=== PATIENT | female | born 1935 | race Caucasian/White ===

== ENCOUNTER 2016-09-11 15:42 | Inpatient (IN) | payer BC, OTHER ==
[~2016-09-11] VITALS: Ht 154.9 cm; Wt 56.7 kg
[~2016-09-11 15:42] MED LIST: ARICEPT10 MG PO; ATIVAN0.5 MG PO; COLACE100 MG ORAL; EVISTA60 MG ORAL; EVISTA60 MG PO; LASIX40 MG ORAL; MULTIVITAMINS1 EAC2 PO; NAMENDA10 MG PO; NAPROXEN SODIU220 M2 PO; OMEGA 3 1,0001 EACH PO; POTASSIUM30 MEQ/22. PO; QUETIAPINE FUMA25 MG PO; SEROQUEL50 MG ORAL; SERTRALINE HCL50 MG PO; TUMS500 MG PO; VITAMIN B COMP1 EAC4 PO; [UNRECOGNIZED DRUG - OTHER] PO
[2016-09-11] MEDS ORDERED: NS 1000ml 1,700 ML IVLG ONE (15:45)
[2016-09-11] MEDS ORDERED: cefTRIAXone 2 GM in NS 110 ML IV SCH (15:45)
[2016-09-11] MEDS ORDERED: Vancomycin 1 GM in NS 275 ML IV ONE (15:45)
[2016-09-11 16:01] VITALS: BP 112/72
[2016-09-11] MEDS ORDERED: FISH OIL CAP1000 MG ORAL (16:14)
[2016-09-11] MEDS ORDERED: CICLOPIROX15 GM TP (16:14)
[2016-09-11] MEDS ORDERED: ACETAMINOP160 MG/51 ORAL (16:14)
[2016-09-11] MEDS ORDERED: HYDROCORTISONE30 G2 TP (16:14)
[2016-09-11] MEDS ORDERED: NEXIUM40 MG ORAL (16:14)
[2016-09-11] MEDS ORDERED: FERROUS SULFAT325 MG ORAL (16:14)
[2016-09-11] MEDS ORDERED: Vancomycin 1gm inj IVPB ONE (16:15)
[2016-09-11 16:42] LABS: MEAN CORPUSCULAR HEMOGLOBIN 34.1 PG (27.0-31.0); MEAN CORPUSCULAR HGB CONC 35.3 G/DL (32.0-36.0); MEAN CORPUSCULAR VOLUME 96 FL (80-99); MEAN PLATELET VOLUME 5.8 FL (6.5-10.1); PLATELET COUNT 279 K/UL (150-450); RED BLOOD COUNT 3.96 M/UL (4.20-5.40); RED CELL DISTRIBUTION WIDTH 12.5 % (11.6-14.8)
[2016-09-11 16:52] LABS: WHITE BLOOD COUNT 22.9 K/UL (4.8-10.8)
[2016-09-11 16:53] LABS: TROPONIN I < 0.30 ng/mL (<=0.30)
[2016-09-11 16:57] LABS: APPEARANCE,URINE SLIGHTLY CLOUDY; KETONES,URINE NEGATIVE (NEGATIVE); LEUKOCYTE ESTERASE ,URINE 2+ (NEGATIVE); NITRITE,URINE POSITIVE (NEGATIVE); PH,URINE 5 (4.5-8.0); PROTEIN,URINE 1+ (NEGATIVE); UROBILINOGEN,URINE NORMAL MG/DL (0.0-1.0)
[2016-09-11 17:00] VITALS: BP 107/53
[2016-09-11 17:04] LABS: REFLEX LACTIC ACID YES OR NO YES
[2016-09-11 17:07] LABS: AMORPHOUS SEDIMENT,UR FEW /LPF; BACTERIA,URINE MANY /HPF; SQUAMOUS EPITHELIAL CELL,UR FEW /LPF (NONE/OCC); WBC,URINE 20-30 /HPF (0 - 2)
[2016-09-11 17:15] LABS: CKMB < 1.5 ng/mL (< 3.8)
[2016-09-11 17:17] LABS: ALANINE AMINOTRANSFERASE 21 U/L (3-33); ALBUMIN/GLOBULIN RATIO 1.1 (1.0-2.7); ANION GAP 12 (5-15); ASPARTATE AMINO TRANSFERASE 28 U/L (5-40); CALCIUM 9.2 mg/dL (8.6-10.2); CARBON DIOXIDE 24 mEQ/L (20-30); CHLORIDE 105 mEQ/L (98-107); CREATININE 0.7 mg/dL (0.5-0.9); HEMOLYSIS 29; POTASSIUM 3.9 mEQ/L (3.4-4.9); SODIUM 141 mEQ/L (135-145); TOTAL PROTEIN 6.8 g/dL (6.6-8.7)
[2016-09-11 17:36] LABS: BAND NEUTROPHILS % (MANUAL) 5 % (0-8); BASOPHILS % (MANUAL) 0 % (0-2); EOSINOPHILS % (MANUAL) 0 % (0-3); LYMPHOCYTES % (MANUAL) 12 % (20-45); NEUTROPHILS % (MANUAL) 75 % (45-75); PLATELET ESTIMATE ADEQUATE; PLATELET MORPHOLOGY NORMAL; TOTAL CELLS COUNTED 100
[2016-09-11 18:00] VITALS: BP 112/78
[2016-09-11] MEDS ORDERED: Nitroglycerin Subl 0.4mg tab (Bottle Of 25) SL PRN (18:45)
[2016-09-11] MEDS ORDERED: Miralax 17gm pkt ORAL PRN (18:45)
[2016-09-11] MEDS ORDERED: Morphine Sulfate 2mg/ml Inj IVP PRN (18:45)
[2016-09-11] MEDS ORDERED: DuoNeb 0.5-3(2.5)mg/3ml neb HHN PRN (18:45)
[2016-09-11 19:00] VITALS: BP 115/75
[2016-09-11 20:00] VITALS: BP 121/78
--- NOTE | 2016-09-11 20:33 | Emergency Room Report ---
History of Present Illness General Chief Complaint: Dyspnea/Respdistress Source: Family Member, Medical Record, EMS Present Illness HPI This patient presents from a nursing home facility. She has a history of severe dementia. She presents for concern of worsening mental status and low blood pressure. She is DO NOT RESUSCITATE. She was given 300 mL of normal saline prior to arrival by EMS and has had improvement in her blood pressure. There was also concern about her O2 saturation, however, on arrival this is within normal limits. There is no other history or complaints. Allergies: Coded Allergies: SULFA (SULFONAMIDE ANTIBIOTICS) (Verified Allergy, Unknown, 08/21/12) Patient History Past Medical History: see triage record, dementia, psych hx, renal disease Past Surgical History: jose, hysterectomy Social History: Denies: alcohol use, drug use, smoking Reviewed Nursing Documentation: PMH: Agreed, PSxH: Agreed Nursing Documentation-PMH Past Medical History: No History, Except For Hx Cardiac Problems: No Hx Cancer: No Hx Gastrointestinal Problems: No History Of Psychiatric Problem: Yes - ALZHEIMER, DEMENTIA, Hx Alzheimer's Disease: Yes Review of Systems All Other Systems: negative except mentioned in HPI Physical Exam Vital Signs Date Time Temp Pulse Resp B/P Pulse Ox O2 Delivery O2 Flow Rate FiO2 09/11/16 15:30 70 20 98/66 82 Non-Rebreather 15.0 09/11/16 16:01 99.4 Sp02 EP Interpretation: reviewed, normal General Appearance: no apparent distress, GCS 15, non-toxic, other - Frail, elderly female. Non-verbal at baseline. Head: normocephalic, atraumatic Eyes: bilateral eye PERRL, bilateral eye normal inspection ENT: hearing grossly normal, normal pharynx, no angioedema Neck: full range of motion, supple/symm/no masses Respiratory: chest non-tender, lungs clear, normal breath sounds, no respiratory distress, no retraction, no accessory muscle use Cardiovascular #1: regular rate, rhythm, no edema Gastrointestinal: normal bowel sounds, non tender, soft, non-distended, no guarding, no rebound Rectal: deferred Musculoskeletal: normal inspection Neurologic: alert, other - Pt not cooperative with exam. Unable to fully assess. non-focal. Skin: normal color, no rash, warm/dry, well hydrated Medical Decision Making Diagnostic Impression: Primary Impression: Sepsis Additional Impression: Pyelonephritis ER Course This patient presents with pyelonephritis and sepsis. She also has an opacity on her chest x-ray and no right mid and lower lobe. There was report of an episode of emesis in route by EMS. Possibly this patient aspirated. At the sinus patient has severe dementia. She is DO NOT RESUSCITATE/DO NOT INTUBATE. She did maintain a normal oxygen saturation and after some suctioning. This was given broad-spectrum antibiotics IV fluids. She will be admitted for further IV antibiotics, evaluation and treatment. This patient is critically ill. This patient required complex medical decision- making, aggressive intervention, extensive laboratory workup and monitoring. Critical care time: 40 minutes. Labs Test 09/11/16 15:50 09/11/16 16:00 09/11/16 19:30 White Blood Count 22.9 K/UL (4.8-10.8) Red Blood Count 3.96 M/UL (4.20-5.40) Hemoglobin 13.5 G/DL (12.0-16.0) Hematocrit 38.1 % (37.0-47.0) Mean Corpuscular Volume 96 FL (80-99) Mean Corpuscular Hemoglobin 34.1 PG (27.0-31.0) Mean Corpuscular Hemoglobin Concent 35.3 G/DL (32.0-36.0) Red Cell Distribution Width 12.5 % (11.6-14.8) Platelet Count 279 K/UL (150-450) Mean Platelet Volume 5.8 FL (6.5-10.1) Neutrophils (%) (Auto) % (45.0-75.0) Lymphocytes (%) (Auto) % (20.0-45.0) Monocytes (%) (Auto) % (1.0-10.0) Eosinophils (%) (Auto) % (0.0-3.0) Basophils (%) (Auto) % (0.0-2.0) Differential Total Cells Counted 100 Neutrophils % (Manual) 75 % (45-75) Lymphocytes % (Manual) 12 % (20-45) Monocytes % (Manual) 8 % (1-10) Eosinophils % (Manual) 0 % (0-3) Basophils % (Manual) 0 % (0-2) Band Neutrophils 5 % (0-8) Platelet Estimate Adequate Platelet Morphology Normal Red Blood Cell Morphology Normal Sodium Level 141 mEQ/L (135-145) Potassium Level 3.9 mEQ/L (3.4-4.9) Chloride Level 105 mEQ/L (98-107) Carbon Dioxide Level 24 mEQ/L (20-30) Anion Gap 12 (5-15) Blood Urea Nitrogen 31 mg/dL (7-23) Creatinine 0.7 mg/dL (0.5-0.9) Estimat Glomerular Filtration Rate mL/min (>60) Glucose Level 179 mg/dL (74-106) Lactic Acid Level 2.20 mmol/L (0.66-2.22) 2.50 mmol/L (0.66-2.22) Calcium Level 9.2 mg/dL (8.6-10.2) Total Bilirubin 0.2 mg/dL (0.0-1.2) Aspartate Amino Transf (AST/SGOT) 28 U/L (5-40) Alanine Aminotransferase (ALT/SGPT) 21 U/L (3-33) Alkaline Phosphatase 87 U/L (35-104) Total Creatine Kinase 29 U/L (26-140) Creatine Kinase MB < 1.5 ng/mL (< 3.8) Creatine Kinase MB Relative Index Troponin I < 0.30 ng/mL (<=0.30) Total Protein 6.8 g/dL (6.6-8.7) Albumin 3.6 g/dL (3.5-5.2) Globulin 3.2 g/dL Albumin/Globulin Ratio 1.1 (1.0-2.7) Urine Color Yellow Urine Appearance Slightly cloudy Urine pH 5 (4.5-8.0) Urine Specific [place] 1.020 (1.005-1.035) Urine Protein 1+ (NEGATIVE) Urine Glucose (UA) Negative (NEGATIVE) Urine Ketones Negative (NEGATIVE) Urine Occult Blood 3+ (NEGATIVE) Urine Nitrite Positive (NEGATIVE) Urine Bilirubin Negative (NEGATIVE) Urine Urobilinogen Normal MG/DL (0.0-1.0) Urine Leukocyte Esterase 2+ (NEGATIVE) Urine RBC 5-10 /HPF (0 - 2) Urine WBC 20-30 /HPF (0 - 2) Urine Squamous Epithelial Cells Few /LPF (NONE/OCC) Urine Amorphous Sediment Few /LPF (NONE) Urine Bacteria Many /HPF (NONE) EKG Diagnostic Results Rate: normal Rhythm: NSR ST Segments: no acute changes Rhythm Strip Diag. Results EP Interpretation: yes Rate: 70's Rhythm: NSR, no PVC's, no ectopy Chest X-Ray Diagnostic Results Chest X-Ray Diagnostic Results : Chest X-Ray Ordered: Yes # of Views/Limited/Complete: 1 View Indication: Other EP Interpretation: No Interpretation: no pneumothorax, other Impression: Other - RML and RLL opacity, cardiomegaly Interpreting ER Provider: Iveth Last Vital Signs Date Time Temp Pulse Resp B/P Pulse Ox O2 Delivery O2 Flow Rate FiO2 09/11/16 20:00 99.4 75 18 121/78 98 Non-Rebreather 15.0 Status: improved Disposition: ADMITTED INPATIENT Condition: Critical Referrals: NON PHYSICIAN (PCP) LAURIE CARDONA D.O. Sep 11, 2016 20:33
--- NOTE | 2016-09-11 21:06 | History and Physical ---
History of Present Illness General Date patient seen: Sep 12, 2016 Reason for Hospitalization: Dyspnea/Respdistress Present Illness HPI 80 year old female with hx of advanced dementia, bed bound presents from a [facility] facility [facility] of worsening mental status and low blood pressure. She is DO NOT RESUSCITATE. She was given 300 mL of normal saline prior to arrival by EMS and has had improvement in her blood pressure. Initial evaluation showed that she has R pneumonia and sepsis. She is admitted for further work up. Allergies: Coded Allergies: SULFA (SULFONAMIDE ANTIBIOTICS) (Verified Allergy, Unknown, 08/21/12) Medication History Scheduled B Complex With Vitamin C (Vitamin B Complex-C), 1 TAB PO DAILY, (Reported) Calcium Carbonate (Calcium), 600 MG PO DAILY, (Reported) Docusate Sodium* (Colace*), 100 MG ORAL TWICE A DAY, (Reported) Esomeprazole Magnesium (Nexium), 40 MG ORAL DAILY, (Reported) Ferrous Sulfate* (Ferrous Sulfate*), 650 MG ORAL DAILY, (Reported) Fish Oil (Fish Oil 1,000 mg Capsule), 1,400 MG ORAL DAILY, (Reported) Furosemide* (Lasix*), 40 MG ORAL DAILY, (Reported) Hydrocortisone (Hydrocortisone Cream 2.5%), 1 APPLIC TP BID, (Reported) Lorazepam* (Ativan*), 0.5 MG PO PRN BID, (Reported) Multivitamins* (Multivitamins*), 1 EACH PO DAILY, (Reported) Naproxen Sodium (Naproxen Sodium), 220 MG PO PRN, (Reported) Cedar-3 Fatty Acids/Fish Oil (Cedar 3 1,000 Mg Softgel), 1 EACH PO DAILY, ( Reported) Potassium Chloride (Potassium Chloride), 20 MEQ PO DAILY, (Reported) Quetiapine Fumarate (Seroquel), 100 MG ORAL DAILY, (Reported) Quetiapine Fumarate* (Seroquel*), 50 MG PO DAILY, (Reported) Raloxifene Hcl* (Evista*), 60 MG ORAL DAILY, (Reported) Sertraline Hcl* (Zoloft*), 25 MG PO DAILY, (Reported) Scheduled PRN Acetaminophen* (Acetaminophen*), 650 MG ORAL Q6H PRN for Mild Pain/Temp > 100.5, (Reported) Miscellaneous Medications Ciclopirox Olamine* (Loprox*), 15 GM TP, (Reported) Patient History Healthcare decision maker Resuscitation status Advanced Directive on File Yes Past Medical/Surgical History Past Medical/Surgical History: (1) Alzheimer's dementia Review of Systems All Other Systems: negative except mentioned in HPI Physical Exam General Appearance: WD/WN Lines, tubes and drains: peripheral HEENT: normocephalic, atraumatic Neck: non-tender, supple Respiratory/Chest: chest wall non-tender, lungs clear Breasts: no masses Cardiovascular/Chest: normal peripheral pulses, normal rate Abdomen: normal bowel sounds, non tender Genitourinary/Rectal: normal genital exam, normal rectal exam Extremities: normal range of motion Skin Exam: normal pigmentation Neurologic: gopherman II-XII grossly normal Lymphatic: anterior cervical Last 24 Hour Vital Signs Date Time Temp Pulse Resp B/P Pulse Ox O2 Delivery O2 Flow Rate FiO2 09/11/16 20:18 99.4 75 18 121/78 98 Non-Rebreather 15.0 09/11/16 20:00 99.4 75 18 121/78 98 Non-Rebreather 15.0 09/11/16 19:00 76 20 115/75 100 Non-Rebreather 15.0 09/11/16 18:00 79 22 112/78 100 Non-Rebreather 15.0 09/11/16 17:00 77 29 107/53 100 Non-Rebreather 15.0 09/11/16 16:01 70 20 Non-Rebreather 15.0 09/11/16 16:01 99.4 70 20 112/72 82 Non-Rebreather 15.0 09/11/16 15:30 70 20 98/66 82 Non-Rebreather 15.0 Laboratory Tests Test 09/11/16 15:50 09/11/16 16:00 09/11/16 19:30 White Blood Count 22.9 K/UL (4.8-10.8) *H Red Blood Count 3.96 M/UL (4.20-5.40) L Hemoglobin 13.5 G/DL (12.0-16.0) Hematocrit 38.1 % (37.0-47.0) Mean Corpuscular Volume 96 FL (80-99) Mean Corpuscular Hemoglobin 34.1 PG (27.0-31.0) H Mean Corpuscular Hemoglobin Concent 35.3 G/DL (32.0-36.0) Red Cell Distribution Width 12.5 % (11.6-14.8) Platelet Count 279 K/UL (150-450) Mean Platelet Volume 5.8 FL (6.5-10.1) L Neutrophils (%) (Auto) % (45.0-75.0) Lymphocytes (%) (Auto) % (20.0-45.0) Monocytes (%) (Auto) % (1.0-10.0) Eosinophils (%) (Auto) % (0.0-3.0) Basophils (%) (Auto) % (0.0-2.0) Differential Total Cells Counted 100 Neutrophils % (Manual) 75 % (45-75) Lymphocytes % (Manual) 12 % (20-45) L Monocytes % (Manual) 8 % (1-10) Eosinophils % (Manual) 0 % (0-3) Basophils % (Manual) 0 % (0-2) Band Neutrophils 5 % (0-8) Platelet Estimate Adequate Platelet Morphology Normal Red Blood Cell Morphology Normal Sodium Level 141 mEQ/L (135-145) Potassium Level 3.9 mEQ/L (3.4-4.9) Chloride Level 105 mEQ/L (98-107) Carbon Dioxide Level 24 mEQ/L (20-30) Anion Gap 12 (5-15) Blood Urea Nitrogen 31 mg/dL (7-23) H Creatinine 0.7 mg/dL (0.5-0.9) Estimat Glomerular Filtration Rate mL/min (>60) Glucose Level 179 mg/dL (74-106) H Lactic Acid Level 2.20 mmol/L (0.66-2.22) 2.50 mmol/L (0.66-2.22) H Calcium Level 9.2 mg/dL (8.6-10.2) Total Bilirubin 0.2 mg/dL (0.0-1.2) Aspartate Amino Transf (AST/SGOT) 28 U/L (5-40) Alanine Aminotransferase (ALT/SGPT) 21 U/L (3-33) Alkaline Phosphatase 87 U/L (35-104) Total Creatine Kinase 29 U/L (26-140) Creatine Kinase MB < 1.5 ng/mL (< 3.8) Creatine Kinase MB Relative Index Troponin I < 0.30 ng/mL (<=0.30) Total Protein 6.8 g/dL (6.6-8.7) Albumin 3.6 g/dL (3.5-5.2) Globulin 3.2 g/dL Albumin/Globulin Ratio 1.1 (1.0-2.7) Urine Color Yellow Urine Appearance Slightly cloudy Urine pH 5 (4.5-8.0) Urine Specific [place] 1.020 (1.005-1.035) Urine Protein 1+ (NEGATIVE) H Urine Glucose (UA) Negative (NEGATIVE) Urine Ketones Negative (NEGATIVE) Urine Occult Blood 3+ (NEGATIVE) H Urine Nitrite Positive (NEGATIVE) H Urine Bilirubin Negative (NEGATIVE) Urine Urobilinogen Normal MG/DL (0.0-1.0) Urine Leukocyte Esterase 2+ (NEGATIVE) H Urine RBC 5-10 /HPF (0 - 2) H Urine WBC 20-30 /HPF (0 - 2) H Urine Squamous Epithelial Cells Few /LPF (NONE/OCC) Urine Amorphous Sediment Few /LPF (NONE) H Urine Bacteria Many /HPF (NONE) H Height (Feet): 5 Weight (Pounds): 125 Medications Current Medications Medications (Trade) Dose Ordered Sig/Medardo Route PRN Reason Start Time Stop Time Status Last Admin Dose Admin Acetaminophen (Tylenol) 650 mg Q4H PRN ORAL fever 09/11/16 18:45 10/11/16 18:44 Albuterol/ Ipratropium 3 ml 3 ml Q4H PRN HHN Shortness of Breath 09/11/16 18:45 09/16/16 18:44 Cefepime HCl 2 gm/ Dextrose 110 ml @ 220 mls/hr QHS IV 09/11/16 22:00 09/18/16 21:59 Heparin Sodium (Porcine) (Heparin 5000 units/ml) 5,000 units EVERY 12 HOURS SUBQ 09/11/16 21:00 10/11/16 20:59 Morphine Sulfate (Morphine Sulfate) 2 mg Q4H PRN IVP Moderate Pain (Pain Scale 4-6) 09/11/16 18:45 09/18/16 18:44 Nitroglycerin 0.4 mg 0.4 mg Q5MIN PRN SL Prn Chest Pain 09/11/16 18:45 10/11/16 18:44 Ondansetron HCl (Zofran) 4 mg Q6H PRN IVP Nausea & Vomiting 09/11/16 18:45 10/11/16 18:44 Polyethylene Glycol (Miralax) 17 gm DAILYPRN PRN ORAL Constipation 09/11/16 18:45 10/11/16 18:44 Potassium Chloride/Dextrose/ Sodium Chloride (KCl/D5ns) 1,010 ml @ 50 mls/hr [id number] IV 09/11/16 22:00 10/11/16 21:59 Quetiapine Fumarate (SEROquel) 50 mg DAILY ORAL 09/12/16 09:00 10/12/16 08:59 Sertraline HCl (Zoloft) 25 mg DAILY ORAL 09/12/16 09:00 10/12/16 08:59 Temazepam (Restoril) 15 mg HSPRN PRN ORAL Insomnia 09/11/16 18:45 09/18/16 18:44 Vancomycin HCl/ Dextrose (Vancomycin/D5W) 275 ml @ 183.3 mls/ hr Q24H IV 09/12/16 00:30 09/17/16 00:29 UNV Assessment/Plan Problem List: (1) Aspiration pneumonia ICD Codes: J69.0 - Pneumonitis due to inhalation of food and vomit SNOMED: 766211509 (2) Acute encephalopathy ICD Codes: G93.40 - Encephalopathy, unspecified SNOMED: 7428011 (3) Sepsis ICD Codes: A41.9 - Sepsis, unspecified organism SNOMED: 79183506 (4) Pyelonephritis ICD Codes: N12 - Tubulo-interstitial nephritis, not specified as acute or chronic SNOMED: 96533886 (5) Alzheimer's dementia ICD Codes: G30.9 - Alzheimer's disease, unspecified SNOMED: 64924981 Assessment/Plan iv abx respiratory treatment swallow study titrate fio2 to sat of 92% check cultures dvt prophylaxis family meeting about plan of care YESY MARSH Sep 11, 2016 21:06
[2016-09-11 22:00] VITALS: BP_SYST 122; BP_SYST 136; BP_DIAS 69; BP_DIAS 77
[2016-09-11] MEDS: Cefepime HCl 2 GM in D5W 110 ML IV SCH (22:54)
[2016-09-11] MEDS: Heparin 5000 units/ml inj SUBQ SCH (22:56)
[2016-09-12] VITALS (8 sets, daily range): BP systolic 97–144; BP diastolic 49–95
[2016-09-12 06:30] LABS: MEAN CORPUSCULAR HEMOGLOBIN 32.3 PG (27.0-31.0); MEAN CORPUSCULAR VOLUME 98 FL (80-99); MEAN PLATELET VOLUME 5.8 FL (6.5-10.1); PLATELET COUNT 246 K/UL (150-450); RED BLOOD COUNT 4.16 M/UL (4.20-5.40); RED CELL DISTRIBUTION WIDTH 12.5 % (11.6-14.8)
[2016-09-12 07:31] LABS: ALANINE AMINOTRANSFERASE 19 U/L (3-33); ALBUMIN/GLOBULIN RATIO 0.9 (1.0-2.7); ANION GAP 12 (5-15); ASPARTATE AMINO TRANSFERASE 32 U/L (5-40); CALCIUM 9.1 mg/dL (8.6-10.2); CARBON DIOXIDE 23 mEQ/L (20-30); CHLORIDE 110 mEQ/L (98-107); CREATININE 0.7 mg/dL (0.5-0.9); HEMOLYSIS 3; POTASSIUM 4.4 mEQ/L (3.4-4.9); SODIUM 145 mEQ/L (135-145); TOTAL PROTEIN 6.6 g/dL (6.6-8.7)
[2016-09-12 10:08] LABS: BAND NEUTROPHILS % (MANUAL) 18 % (0-8); BASOPHILS % (MANUAL) 0 % (0-2); EOSINOPHILS % (MANUAL) 0 % (0-3); LYMPHOCYTES % (MANUAL) 7 % (20-45); NEUTROPHILS % (MANUAL) 74 % (45-75); PLATELET ESTIMATE ADEQUATE; PLATELET MORPHOLOGY NORMAL; TOTAL CELLS COUNTED 100
--- NOTE | 2016-09-12 10:13 | Diagnostic Imaging Report ---
Indication: SOB Technique: One view of the chest Comparison: 02/29/2012 Findings: Interim development of diffuse hazy opacity throughout the right mid and lower lung. There is equivocal mild interstitial prominence. The heart is enlarged. Pleural spaces are clear. 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 Cholecystectomy clips are noted Impression: Hazy infiltrate in the right mid and lower lung. Possible mild generalized interstitial disease.
[2016-09-12] MEDS: Sertraline 50mg tab ORAL SCH (10:24)
[2016-09-12] MEDS: Heparin 5000 units/ml inj SUBQ SCH ×2 (10:40→20:09)
--- NOTE | 2016-09-12 12:01 | Infectious Diseases Prog Note ---
Assessment/Plan Assessment/Plan ID consult dictated # [id number] Subjective Allergies: Coded Allergies: SULFA (SULFONAMIDE ANTIBIOTICS) (Verified Allergy, Unknown, 08/21/12) Objective Vital Signs Last 24 Hour Vital Signs Date Time Temp Pulse Resp B/P Pulse Ox O2 Delivery O2 Flow Rate FiO2 09/12/16 08:31 100 Non-Rebreather 15.0 100 09/12/16 08:31 Non-Rebreather 15.0 100 09/12/16 08:28 98 22 Non-Rebreather 15.0 100 09/12/16 08:00 98.2 95 20 116/66 100 Room Air 09/12/16 08:00 98.2 95 20 116/66 100 Simple Mask 15.0 09/12/16 04:00 97.9 96 22 105/61 100 Non-Rebreather 09/12/16 00:00 97.7 72 18 122/72 97 Non-Rebreather 09/12/16 00:00 96.4 92 22 144/75 100 Non-Rebreather 09/11/16 22:00 97.9 71 20 122/69 98 Non-Rebreather 09/11/16 22:00 95.7 85 20 136/77 95 Non-Rebreather 09/11/16 20:18 99.4 75 18 121/78 98 Non-Rebreather 15.0 09/11/16 20:00 99.4 75 18 121/78 98 Non-Rebreather 15.0 09/11/16 19:00 76 20 115/75 100 Non-Rebreather 15.0 09/11/16 18:00 79 22 112/78 100 Non-Rebreather 15.0 09/11/16 17:00 77 29 107/53 100 Non-Rebreather 15.0 09/11/16 16:01 70 20 Non-Rebreather 15.0 09/11/16 16:01 99.4 70 20 112/72 82 Non-Rebreather 15.0 09/11/16 15:30 70 20 98/66 82 Non-Rebreather 15.0 Height (Feet): 5 Height (Inches): 1.00 Weight (Pounds): 125 Microbiology Date/Time Source Procedure Growth Status 09/11/16 15:30 Blood Blood Culture - Preliminary Resulted 09/11/16 16:00 Urine,Clean Catch Urine Culture - Preliminary Gram Negative Bacillus 1 Resulted Laboratory Tests Test 09/11/16 15:50 09/11/16 16:00 09/11/16 19:30 09/12/16 04:40 White Blood Count 22.9 K/UL (4.8-10.8) *H 11.0 K/UL (4.8-10.8) #H Red Blood Count 3.96 M/UL (4.20-5.40) L 4.16 M/UL (4.20-5.40) L Hemoglobin 13.5 G/DL (12.0-16.0) 13.5 G/DL (12.0-16.0) Hematocrit 38.1 % (37.0-47.0) 40.8 % (37.0-47.0) Mean Corpuscular Volume 96 FL (80-99) 98 FL (80-99) Mean Corpuscular Hemoglobin 34.1 PG (27.0-31.0) H 32.3 PG (27.0-31.0) H Mean Corpuscular Hemoglobin Concent 35.3 G/DL (32.0-36.0) 33.0 G/DL (32.0-36.0) Red Cell Distribution Width 12.5 % (11.6-14.8) 12.5 % (11.6-14.8) Platelet Count 279 K/UL (150-450) 246 K/UL (150-450) Mean Platelet Volume 5.8 FL (6.5-10.1) L 5.8 FL (6.5-10.1) L Neutrophils (%) (Auto) % (45.0-75.0) % (45.0-75.0) Lymphocytes (%) (Auto) % (20.0-45.0) % (20.0-45.0) Monocytes (%) (Auto) % (1.0-10.0) % (1.0-10.0) Eosinophils (%) (Auto) % (0.0-3.0) % (0.0-3.0) Basophils (%) (Auto) % (0.0-2.0) % (0.0-2.0) Differential Total Cells Counted 100 100 Neutrophils % (Manual) 75 % (45-75) 74 % (45-75) Lymphocytes % (Manual) 12 % (20-45) L 7 % (20-45) L Monocytes % (Manual) 8 % (1-10) 1 % (1-10) Eosinophils % (Manual) 0 % (0-3) 0 % (0-3) Basophils % (Manual) 0 % (0-2) 0 % (0-2) Band Neutrophils 5 % (0-8) 18 % (0-8) H Platelet Estimate Adequate Adequate Platelet Morphology Normal Normal Red Blood Cell Morphology Normal Normal Sodium Level 141 mEQ/L (135-145) 145 mEQ/L (135-145) Potassium Level 3.9 mEQ/L (3.4-4.9) 4.4 mEQ/L (3.4-4.9) Chloride Level 105 mEQ/L (98-107) 110 mEQ/L (98-107) H Carbon Dioxide Level 24 mEQ/L (20-30) 23 mEQ/L (20-30) Anion Gap 12 (5-15) 12 (5-15) Blood Urea Nitrogen 31 mg/dL (7-23) H 27 mg/dL (7-23) H Creatinine 0.7 mg/dL (0.5-0.9) 0.7 mg/dL (0.5-0.9) Estimat Glomerular Filtration Rate mL/min (>60) mL/min (>60) Glucose Level 179 mg/dL (74-106) H 153 mg/dL (74-106) H Lactic Acid Level 2.20 mmol/L (0.66-2.22) 2.50 mmol/L (0.66-2.22) H Calcium Level 9.2 mg/dL (8.6-10.2) 9.1 mg/dL (8.6-10.2) Total Bilirubin 0.2 mg/dL (0.0-1.2) 0.4 mg/dL (0.0-1.2) Aspartate Amino Transf (AST/SGOT) 28 U/L (5-40) 32 U/L (5-40) Alanine Aminotransferase (ALT/SGPT) 21 U/L (3-33) 19 U/L (3-33) Alkaline Phosphatase 87 U/L (35-104) 77 U/L (35-104) Total Creatine Kinase 29 U/L (26-140) Creatine Kinase MB < 1.5 ng/mL (< 3.8) Creatine Kinase MB Relative Index Troponin I < 0.30 ng/mL (<=0.30) Total Protein 6.8 g/dL (6.6-8.7) 6.6 g/dL (6.6-8.7) Albumin 3.6 g/dL (3.5-5.2) 3.2 g/dL (3.5-5.2) L Globulin 3.2 g/dL 3.4 g/dL Albumin/Globulin Ratio 1.1 (1.0-2.7) 0.9 (1.0-2.7) L Urine Color Yellow Urine Appearance Slightly cloudy Urine pH 5 (4.5-8.0) Urine Specific [place] 1.020 (1.005-1.035) Urine Protein 1+ (NEGATIVE) H Urine Glucose (UA) Negative (NEGATIVE) Urine Ketones Negative (NEGATIVE) Urine Occult Blood 3+ (NEGATIVE) H Urine Nitrite Positive (NEGATIVE) H Urine Bilirubin Negative (NEGATIVE) Urine Urobilinogen Normal MG/DL (0.0-1.0) Urine Leukocyte Esterase 2+ (NEGATIVE) H Urine RBC 5-10 /HPF (0 - 2) H Urine WBC 20-30 /HPF (0 - 2) H Urine Squamous Epithelial Cells Few /LPF (NONE/OCC) Urine Amorphous Sediment Few /LPF (NONE) H Urine Bacteria Many /HPF (NONE) H Current Medications Medications (Trade) Dose Ordered Sig/Medardo Route PRN Reason Start Time Stop Time Status Last Admin Dose Admin Acetaminophen (Tylenol) 650 mg Q4H PRN ORAL fever 09/11/16 18:45 10/11/16 18:44 Albuterol/ Ipratropium 3 ml 3 ml Q4H PRN HHN Shortness of Breath 09/11/16 18:45 09/16/16 18:44 Cefepime HCl 2 gm/ Dextrose 110 ml @ 220 mls/hr QHS IV 09/11/16 22:00 09/18/16 21:59 09/11/16 22:54 Heparin Sodium (Porcine) (Heparin 5000 units/ml) 5,000 units EVERY 12 HOURS SUBQ 09/11/16 21:00 10/11/16 20:59 09/12/16 10:40 Morphine Sulfate (Morphine Sulfate) 2 mg Q4H PRN IVP Moderate Pain (Pain Scale 4-6) 09/11/16 18:45 09/18/16 18:44 Nitroglycerin 0.4 mg 0.4 mg Q5MIN PRN SL Prn Chest Pain 09/11/16 18:45 10/11/16 18:44 Ondansetron HCl (Zofran) 4 mg Q6H PRN IVP Nausea & Vomiting 09/11/16 18:45 10/11/16 18:44 Polyethylene Glycol (Miralax) 17 gm DAILYPRN PRN ORAL Constipation 09/11/16 18:45 10/11/16 18:44 Potassium Chloride/Dextrose/ Sodium Chloride (KCl/D5ns) 1,010 ml @ 50 mls/hr [id number] IV 09/11/16 22:00 10/11/16 21:59 09/11/16 22:55 Quetiapine Fumarate (SEROquel) 50 mg DAILY ORAL 09/12/16 09:00 10/12/16 08:59 Sertraline HCl (Zoloft) 25 mg DAILY ORAL 09/12/16 09:00 10/12/16 08:59 Temazepam (Restoril) 15 mg HSPRN PRN ORAL Insomnia 09/11/16 18:45 09/18/16 18:44 Vancomycin HCl/ Dextrose (Vancomycin/D5W) 275 ml @ 183.3 mls/ hr Q24H IVPB 09/12/16 16:30 09/17/16 16:29 VALORIE CLEVELAND Sep 12, 2016 12:01
--- NOTE | 2016-09-12 13:46 | Consultation ---
DATE OF CONSULTATION: 09/12/2016 INFECTIOUS DISEASE CONSULTATION This consult is for coverage of Dr. Lyons. CONSULTING PHYSICIAN: Roni Beltran M.D. PRIMARY ATTENDING: Mike Servin M.D. REASON FOR CONSULT: Sepsis and UTI. HISTORY OF PRESENT ILLNESS: This is a 80-year-old white female, admitted yesterday from assisted facility, because of altered mental status at baseline. The patient have dementia, but was less responsive. She was hypertensive. She was found to have leukocytosis and lactic acidosis. PAST MEDICAL HISTORY: Significant for Alzheimer dementia, diverticulosis, status post cholecystectomy, and status post hysterectomy. MEDICATIONS: Vancomycin, Seroquel, Zoloft, cefepime, DuoNeb inhaler, Tylenol, morphine, Zofran, and nitroglycerin. ALLERGIES: Allergic to sulfa. SOCIAL HISTORY: shelter resident. Code status is DNR. No history of alcohol, drug abuse, or smoking. PHYSICAL EXAMINATION: GENERAL APPEARANCE: In no acute distress. VITAL SIGNS: Temperature 98.2 degrees, pulse 95, and blood pressure 116/66. HEAD AND NECK: Getting O2 by nasal cannula. She had central facial rash. HEART: Regular. LUNGS: Clear. ABDOMEN: Soft, nontender, and obese. EXTREMITIES: No edema. NEUROLOGIC: Awake. Seems confused. Nonverbal. LABORATORY DATA: WBC today is 11,000 coming from 22.9, hemoglobin 18.5, hematocrit 40.8, and platelets are 246,000. Sodium 145, potassium 4.4, chloride 110, bicarbonate 22, BUN 27, creatinine 0.7, and glucose 153. Lactic acid is 2.5. Chest x-ray showed hazy infiltrate in the lower lung. UA showed WBC of 20-30, RBC 5-10, and nitrite positive. Urine culture growing gram negative rods. Blood culture growing gram negative rods. IMPRESSION: Sepsis with leukocytosis and lactic acidosis. Source seems to be urinary tract infection. The patient has pyuria. The patient have bacteremia with gram positive rods. May have early pneumonia in the right side. She has advanced dementia with psychosis. RECOMMENDATION: We will continue with current antibiotic, vancomycin, and cefepime. We will follow up with cultures. At the end of my exam, I thank, Gareth, for involving me in the care of this patient. Roni Beltran M.D. DR: KAYY JOB#: [id number] CC:
--- NOTE | 2016-09-12 15:45 | Pulmonology Progress Note ---
Assessment/Plan Problems: (1) Aspiration pneumonia (2) Acute encephalopathy (3) Sepsis (4) Pyelonephritis (5) Alzheimer's dementia Assessment/Plan wbc decreasing iv abx respiratory treatment swallow study titrate fio2 to sat of 92% check cultures dvt prophylaxis talked to pt's son, he wouldn't want any artificial feeding in case she fails swallow study Subjective ROS Limited/Unobtainable: Yes Constitutional: Reports: no symptoms HEENT: Repors: no symptoms Respiratory: Reports: no symptoms, other Allergies: Coded Allergies: SULFA (SULFONAMIDE ANTIBIOTICS) (Verified Allergy, Unknown, 08/21/12) Objective Last 24 Hour Vital Signs Date Time Temp Pulse Resp B/P Pulse Ox O2 Delivery O2 Flow Rate FiO2 09/12/16 12:00 98.4 20 120/60 97 Nasal Cannula 3.0 09/12/16 08:31 100 Non-Rebreather 15.0 100 09/12/16 08:31 Non-Rebreather 15.0 100 09/12/16 08:28 98 22 Non-Rebreather 15.0 100 09/12/16 08:00 98.2 95 20 116/66 100 Room Air 09/12/16 08:00 98.2 95 20 116/66 100 Simple Mask 15.0 09/12/16 04:00 97.9 96 22 105/61 100 Non-Rebreather 09/12/16 00:00 97.7 72 18 122/72 97 Non-Rebreather 09/12/16 00:00 96.4 92 22 144/75 100 Non-Rebreather 09/11/16 22:00 97.9 71 20 122/69 98 Non-Rebreather 09/11/16 22:00 95.7 85 20 136/77 95 Non-Rebreather 09/11/16 20:18 99.4 75 18 121/78 98 Non-Rebreather 15.0 09/11/16 20:00 99.4 75 18 121/78 98 Non-Rebreather 15.0 09/11/16 19:00 76 20 115/75 100 Non-Rebreather 15.0 09/11/16 18:00 79 22 112/78 100 Non-Rebreather 15.0 09/11/16 17:00 77 29 107/53 100 Non-Rebreather 15.0 09/11/16 16:01 70 20 Non-Rebreather 15.0 09/11/16 16:01 99.4 70 20 112/72 82 Non-Rebreather 15.0 Intake and Output 09/11/16 09/12/16 18:59 06:59 Intake Total 2085 ml 410 ml Output Total 50 ml 1200 ml Balance 2035 ml -790 ml Intake IV Total 2085 ml 410 ml Output Urine Total 50 ml 1200 ml General Appearance: WD/WN HEENT: normocephalic, atraumatic, anicteric Respiratory/Chest: chest wall non-tender, lungs clear Breasts: no masses Cardiovascular: normal peripheral pulses Abdomen: normal bowel sounds, soft, non tender Genitourinary: normal external genitalia Extremities: no cyanosis, no clubbing Skin: no rash 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 Lymphatic: no neck adenopathy Microbiology Date/Time Source Procedure Growth Status 09/11/16 15:30 Blood Blood Culture - Preliminary Resulted 09/11/16 16:00 Urine,Clean Catch Urine Culture - Preliminary Gram Negative Bacillus 1 Resulted Laboratory Tests 09/11/16 15:50: White Blood Count 22.9*H, Red Blood Count 3.96L, Hemoglobin 13.5, Hematocrit 38.1, Mean Corpuscular Volume 96, Mean Corpuscular Hemoglobin 34.1H, Mean Corpuscular Hemoglobin Concent 35.3, Red Cell Distribution Width 12.5, Platelet Count 279, Mean Platelet Volume 5.8L, Neutrophils (%) (Auto) , Lymphocytes (%) ( Auto) , Monocytes (%) (Auto) , Eosinophils (%) (Auto) , Basophils (%) (Auto) , Differential Total Cells Counted 100, Neutrophils % (Manual) 75, Lymphocytes % ( Manual) 12L, Monocytes % (Manual) 8, Eosinophils % (Manual) 0, Basophils % ( Manual) 0, Band Neutrophils 5, Platelet Estimate Adequate, Platelet Morphology Normal, Red Blood Cell Morphology Normal, Sodium Level 141, Potassium Level 3.9 , Chloride Level 105, Carbon Dioxide Level 24, Anion Gap 12, Blood Urea Nitrogen 31H, Creatinine 0.7, Estimat Glomerular Filtration Rate , Glucose Level 179H, Lactic Acid Level 2.20, Calcium Level 9.2, Total Bilirubin 0.2, Aspartate Amino Transf (AST/SGOT) 28, Alanine Aminotransferase (ALT/SGPT) 21, Alkaline Phosphatase 87, Total Creatine Kinase 29, Creatine Kinase MB < 1.5, Creatine Kinase MB Relative Index , Troponin I < 0.30, Total Protein 6.8, Albumin 3.6, Globulin 3.2, Albumin/Globulin Ratio 1.1 09/11/16 16:00: Urine Color Yellow, Urine Appearance Slightly cloudy, Urine pH 5, Urine Specific [place] 1.020, Urine Protein 1+H, Urine Glucose (UA) Negative, Urine Ketones Negative, Urine Occult Blood 3+H, Urine Nitrite PositiveH, Urine Bilirubin Negative, Urine Urobilinogen Normal, Urine Leukocyte Esterase 2+H, Urine RBC 5-10H, Urine WBC 20-30H, Urine Squamous Epithelial Cells Few, Urine Amorphous Sediment FewH, Urine Bacteria ManyH 09/11/16 19:30: Lactic Acid Level 2.50H 09/12/16 04:40: White Blood Count 11.0#H, Red Blood Count 4.16L, Hemoglobin 13.5, Hematocrit 40.8, Mean Corpuscular Volume 98, Mean Corpuscular Hemoglobin 32.3H, Mean Corpuscular Hemoglobin Concent 33.0, Red Cell Distribution Width 12.5, Platelet Count 246, Mean Platelet Volume 5.8L, Neutrophils (%) (Auto) , Lymphocytes (%) ( Auto) , Monocytes (%) (Auto) , Eosinophils (%) (Auto) , Basophils (%) (Auto) , Differential Total Cells Counted 100, Neutrophils % (Manual) 74, Lymphocytes % ( Manual) 7L, Monocytes % (Manual) 1, Eosinophils % (Manual) 0, Basophils % ( Manual) 0, Band Neutrophils 18H, Platelet Estimate Adequate, Platelet Morphology Normal, Red Blood Cell Morphology Normal, Sodium Level 145, Potassium Level 4.4, Chloride Level 110H, Carbon Dioxide Level 23, Anion Gap 12 , Blood Urea Nitrogen 27H, Creatinine 0.7, Estimat Glomerular Filtration Rate , Glucose Level 153H, Calcium Level 9.1, Total Bilirubin 0.4, Aspartate Amino Transf (AST/SGOT) 32, Alanine Aminotransferase (ALT/SGPT) 19, Alkaline Phosphatase 77, Total Protein 6.6, Albumin 3.2L, Globulin 3.4, Albumin/Globulin Ratio 0.9L Current Medications Medications (Trade) Dose Ordered Sig/Medardo Route PRN Reason Start Time Stop Time Status Last Admin Dose Admin Acetaminophen (Tylenol) 650 mg Q4H PRN ORAL fever 09/11/16 18:45 10/11/16 18:44 Albuterol/ Ipratropium 3 ml 3 ml Q4H PRN HHN Shortness of Breath 09/11/16 18:45 09/16/16 18:44 Cefepime HCl 2 gm/ Dextrose 110 ml @ 220 mls/hr QHS IV 09/11/16 22:00 09/18/16 21:59 09/11/16 22:54 Heparin Sodium (Porcine) (Heparin 5000 units/ml) 5,000 units EVERY 12 HOURS SUBQ 09/11/16 21:00 10/11/16 20:59 09/12/16 10:40 Morphine Sulfate (Morphine Sulfate) 2 mg Q4H PRN IVP Moderate Pain (Pain Scale 4-6) 09/11/16 18:45 09/18/16 18:44 Nitroglycerin 0.4 mg 0.4 mg Q5MIN PRN SL Prn Chest Pain 09/11/16 18:45 10/11/16 18:44 Ondansetron HCl (Zofran) 4 mg Q6H PRN IVP Nausea & Vomiting 09/11/16 18:45 10/11/16 18:44 Polyethylene Glycol (Miralax) 17 gm DAILYPRN PRN ORAL Constipation 09/11/16 18:45 10/11/16 18:44 Potassium Chloride/Dextrose/ Sodium Chloride (KCl/D5ns) 1,010 ml @ 50 mls/hr [id number] IV 09/11/16 22:00 10/11/16 21:59 09/11/16 22:55 Quetiapine Fumarate (SEROquel) 50 mg DAILY ORAL 09/12/16 09:00 10/12/16 08:59 Sertraline HCl (Zoloft) 25 mg DAILY ORAL 09/12/16 09:00 10/12/16 08:59 Temazepam (Restoril) 15 mg HSPRN PRN ORAL Insomnia 09/11/16 18:45 09/18/16 18:44 Vancomycin HCl/ Dextrose (Vancomycin/D5W) 275 ml @ 183.3 mls/ hr Q24H IVPB 09/12/16 16:30 09/17/16 16:29 YESY MARSH Sep 12, 2016 15:45
[2016-09-12] MEDS ORDERED: Vancomycin 1 GM in D5W 275 ML IVPB SCH (16:30)
--- NOTE | 2016-09-12 16:55 | GI Initial Consult Note ---
History of Present Illness General Date patient seen: Sep 12, 2016 Time patient seen: 15:00 Reason for Hospitalization: Dyspnea/Respdistress Referring physician: YESY MARSH Reason for Consultation: EMESIS Present Illness HPI This patient presents from a snf facility. She has a history of severe dementia. She presents for concern of worsening mental status and low blood pressure. She is DO NOT RESUSCITATE. She was given 300 mL of normal saline prior to arrival by EMS and has had improvement in her blood pressure. There was also concern about her O2 saturation, however, on arrival this is within normal limits. There is no other history or complaints. GI Consult. HPI as noted above. GI consulted for reports of emesis x 2. No hematemesis or coffee grounds noted. ROS limited, pt AMS. Pt seen on floor, awake NAD with no active s/sx of N/V/D. Presents today with noted emesis and leukocytosis. H&H stable. Unknown history of endoscopic procedures. Home Meds Reported Medications Hydrocortisone (Hydrocortisone Cream 2.5%) Y Cream.appl, 1 APPLIC TP BID, GM 09/11/16 Fish Oil (Fish Oil 1,000 mg Capsule) 1 Each Capsule, 1400 MG ORAL DAILY, CAP 09/11/16 Ferrous Sulfate* (FERROUS SULFATE*) 325 Mg Tablet, 650 MG ORAL DAILY, #30 TAB 0 Refills 09/11/16 Esomeprazole Magnesium (NEXIUM) 40 Mg Capsule.dr, 40 MG ORAL DAILY, CAP 09/11/16 Ciclopirox Olamine* (LOPROX*) 15 Gm Cream..g., 15 GM TP, GM 09/11/16 Acetaminophen* (ACETAMINOPHEN*) 160 Mg/5 Ml Liquid, 650 MG ORAL Q6H Y for Mild Pain/Temp > 100.5, ML 09/11/16 Docusate Sodium* (COLACE*) 100 Mg Capsule, 100 MG ORAL TWICE A DAY, CAP 09/04/12 Naproxen Sodium (NAPROXEN SODIUM) 220 Mg Capsule, 220 MG PO PRN 08/21/12 Potassium Chloride (Potassium Chloride) 30 Meq/22.5 Ml Liqd, 20 MEQ PO DAILY 08/21/12 Furosemide* (LASIX*) 40 Mg Tablet, 40 MG ORAL DAILY, TAB 08/21/12 Raloxifene Hcl* (EVISTA*) 60 Mg Tablet, 60 MG ORAL DAILY, TAB 08/21/12 Quetiapine Fumarate (SEROQUEL) 50 Mg Tablet, 100 MG ORAL DAILY, TAB 08/21/12 [place]-3 Fatty Acids/Fish Oil (OMEGA 3 1,000 MG SOFTGEL) 1 Each Capsule, 1 EACH PO DAILY 02/29/12 Multivitamins* (MULTIVITAMINS*) 1 Each Tablet, 1 EACH PO DAILY, TAB 02/29/12 B Complex With Vitamin C (VITAMIN B COMPLEX-C) 1 Each Tablet, 1 TAB PO DAILY, # 10 TAB Take one tablet by mouth daily 02/29/12 Calcium Carbonate (Calcium) 500 Mg Tab, 600 MG PO DAILY 02/29/12 Quetiapine Fumarate* (SEROQUEL*) 25 Mg Tablet, 50 MG PO DAILY 02/29/12 Lorazepam* (ATIVAN*) 0.5 Mg Tablet, 0.5 MG PO PRN BID, TAB 02/29/12 Sertraline Hcl* (ZOLOFT*) 50 Mg Tablet, 25 MG PO DAILY 02/29/12 Med list reviewed/reconciled: Yes Allergies: Coded Allergies: SULFA (SULFONAMIDE ANTIBIOTICS) (Verified Allergy, Unknown, 08/21/12) Patient History Limited by: medical condition History Provided By: Medical Record PMH Narrative Patient History Past Medical History: see triage record, dementia, psych hx, renal disease Past Surgical History: jose, hysterectomy Social History: Denies: alcohol use, drug use, smoking Reviewed Nursing Documentation: PMH: Agreed, PSxH: Agreed Nursing Documentation-PM Past Medical History: No History, Except For Hx Cardiac Problems: No Hx Cancer: No Hx Gastrointestinal Problems: No History Of Psychiatric Problem: Yes - ALZHEIMER, DEMENTIA, Hx Alzheimer's Disease: Yes Social History: Denies: alcohol use, drug use, other, smoking Review of Systems All Other Systems: limited Physical Exam Vital Signs Date Time Temp Pulse Resp B/P Pulse Ox O2 Delivery O2 Flow Rate FiO2 09/11/16 15:30 70 20 98/66 82 Non-Rebreather 15.0 09/11/16 16:01 99.4 09/12/16 08:28 100 Sp02 EP Interpretation: reviewed Labs Laboratory Tests Test 09/11/16 19:30 09/12/16 04:40 Lactic Acid Level 2.50 mmol/L (0.66-2.22) H White Blood Count 11.0 K/UL (4.8-10.8) #H Red Blood Count 4.16 M/UL (4.20-5.40) L Hemoglobin 13.5 G/DL (12.0-16.0) Hematocrit 40.8 % (37.0-47.0) Mean Corpuscular Volume 98 FL (80-99) Mean Corpuscular Hemoglobin 32.3 PG (27.0-31.0) H Mean Corpuscular Hemoglobin Concent 33.0 G/DL (32.0-36.0) Red Cell Distribution Width 12.5 % (11.6-14.8) Platelet Count 246 K/UL (150-450) Mean Platelet Volume 5.8 FL (6.5-10.1) L Neutrophils (%) (Auto) % (45.0-75.0) Lymphocytes (%) (Auto) % (20.0-45.0) Monocytes (%) (Auto) % (1.0-10.0) Eosinophils (%) (Auto) % (0.0-3.0) Basophils (%) (Auto) % (0.0-2.0) Differential Total Cells Counted 100 Neutrophils % (Manual) 74 % (45-75) Lymphocytes % (Manual) 7 % (20-45) L Monocytes % (Manual) 1 % (1-10) Eosinophils % (Manual) 0 % (0-3) Basophils % (Manual) 0 % (0-2) Band Neutrophils 18 % (0-8) H Platelet Estimate Adequate Platelet Morphology Normal Red Blood Cell Morphology Normal Sodium Level 145 mEQ/L (135-145) Potassium Level 4.4 mEQ/L (3.4-4.9) Chloride Level 110 mEQ/L (98-107) H Carbon Dioxide Level 23 mEQ/L (20-30) Anion Gap 12 (5-15) Blood Urea Nitrogen 27 mg/dL (7-23) H Creatinine 0.7 mg/dL (0.5-0.9) Estimat Glomerular Filtration Rate mL/min (>60) Glucose Level 153 mg/dL (74-106) H Calcium Level 9.1 mg/dL (8.6-10.2) Total Bilirubin 0.4 mg/dL (0.0-1.2) Aspartate Amino Transf (AST/SGOT) 32 U/L (5-40) Alanine Aminotransferase (ALT/SGPT) 19 U/L (3-33) Alkaline Phosphatase 77 U/L (35-104) Total Protein 6.6 g/dL (6.6-8.7) Albumin 3.2 g/dL (3.5-5.2) L Globulin 3.4 g/dL Albumin/Globulin Ratio 0.9 (1.0-2.7) L General Appearance: well appearing, no apparent distress, alert Head: normocephalic EENT: PERRL/EOMI, normal ENT inspection Neck: supple Respiratory: normal breath sounds, no respiratory distress Cardiovascular: normal rate Gastrointestinal: normal inspection, non tender, soft Neurologic: alert Skin: normal inspection, normal color, no rash, warm/dry Lymphatic: normal inspection, no adenopathy Current Medications Current Medications Medications (Trade) Dose Ordered Sig/Medardo Route PRN Reason Start Time Stop Time Status Last Admin Dose Admin Acetaminophen (Tylenol) 650 mg Q4H PRN ORAL fever 09/11/16 18:45 10/11/16 18:44 Albuterol/ Ipratropium 3 ml 3 ml Q4H PRN HHN Shortness of Breath 09/11/16 18:45 09/16/16 18:44 Cefepime HCl 2 gm/ Dextrose 110 ml @ 220 mls/hr QHS IV 09/11/16 22:00 09/18/16 21:59 09/11/16 22:54 Clotrimazole (Lotrimin) 1 applic BEDTIME TOPIC 09/12/16 21:00 10/12/16 20:59 Heparin Sodium (Porcine) (Heparin 5000 units/ml) 5,000 units EVERY 12 HOURS SUBQ 09/11/16 21:00 10/11/16 20:59 09/12/16 10:40 Hydrocortisone (Hydrocortisone) 1 applic BEDTIME TOPIC 09/12/16 21:00 10/12/16 20:59 Morphine Sulfate (Morphine Sulfate) 2 mg Q4H PRN IVP Moderate Pain (Pain Scale 4-6) 09/11/16 18:45 09/18/16 18:44 Nitroglycerin 0.4 mg 0.4 mg Q5MIN PRN SL Prn Chest Pain 09/11/16 18:45 10/11/16 18:44 Ondansetron HCl (Zofran) 4 mg Q6H PRN IVP Nausea & Vomiting 09/11/16 18:45 10/11/16 18:44 Polyethylene Glycol (Miralax) 17 gm DAILYPRN PRN ORAL Constipation 09/11/16 18:45 10/11/16 18:44 Potassium Chloride/Dextrose/ Sodium Chloride (KCl/D5ns) 1,010 ml @ 50 mls/hr [id number] IV 09/11/16 22:00 10/11/16 21:59 09/11/16 22:55 Quetiapine Fumarate (SEROquel) 50 mg DAILY ORAL 09/12/16 09:00 10/12/16 08:59 Sertraline HCl (Zoloft) 25 mg DAILY ORAL 09/12/16 09:00 10/12/16 08:59 Temazepam (Restoril) 15 mg HSPRN PRN ORAL Insomnia 09/11/16 18:45 09/18/16 18:44 Vancomycin HCl/ Dextrose (Vancomycin/D5W) 275 ml @ 183.3 mls/ hr Q24H IVPB 09/12/16 16:30 09/17/16 16:29 GI: Plan Problems: (1) Emesis (2) Alzheimer's dementia (3) At high risk for aspiration (4) Sepsis Plan symptomatic treatment zofran prn >> medication reaction to reglan and erythromycin ST evaluation fu H2B abx fu labs Discussed with Dr. Coley. Thank you for referring this patient, we will follow. Valentina Brannon N.P. Sep 12, 2016 16:55
--- NOTE | 2016-09-12 18:15 | Cardiology Report ---
APPROVED REPORT EKG Measurement Heart [id number] Normal sinus rhythm Normal ECG
[2016-09-12] MEDS: Famotidine 20 MG/ 2ML VIAL IVP SCH (20:06)
[2016-09-12] MEDS: Cefepime HCl 2 GM in D5W 110 ML IV SCH (20:06)
[2016-09-12] MEDS: Hydrocortisone 2.5% Oint 30gm TOPIC SCH (20:07)
[2016-09-13 03:11] VITALS: BP 137/74
[2016-09-13 06:53] LABS: BASOPHILS % (AUTO) 0.4 % (0.0-2.0); EOSINOPHILS % (AUTO) 0.1 % (0.0-3.0); LYMPHOCYTES % (AUTO) 9.5 % (20.0-45.0); MEAN CORPUSCULAR HGB CONC 33.1 G/DL (32.0-36.0); MEAN CORPUSCULAR VOLUME 97 FL (80-99); MEAN PLATELET VOLUME 6.7 FL (6.5-10.1); MONOCYTES % (AUTO) 5.6 % (1.0-10.0); NEUTROPHILS % (AUTO) 84.4 % (45.0-75.0); PLATELET COUNT 201 K/UL (150-450); RED BLOOD COUNT 3.77 M/UL (4.20-5.40); RED CELL DISTRIBUTION WIDTH 12.4 % (11.6-14.8); WHITE BLOOD COUNT 14.5 K/UL (4.8-10.8)
[2016-09-13 07:14] LABS: ALANINE AMINOTRANSFERASE 17 U/L (3-33); ANION GAP 12 (5-15); ASPARTATE AMINO TRANSFERASE 33 U/L (5-40); CALCIUM 9.6 mg/dL (8.6-10.2); CARBON DIOXIDE 24 mEQ/L (20-30); CHLORIDE 113 mEQ/L (98-107); CREATININE 0.7 mg/dL (0.5-0.9); HEMOLYSIS 12; MAGNESIUM 1.9 mg/dL (1.7-2.5); PHOSPHORUS 1.5 mg/dL (2.5-4.8); POTASSIUM 3.8 mEQ/L (3.4-4.9); SODIUM 149 mEQ/L (135-145); TOTAL PROTEIN 6.5 g/dL (6.6-8.7)
[2016-09-13 08:15] VITALS: BP 121/72
[2016-09-13] MEDS: Sertraline 50mg tab ORAL SCH (09:00)
[2016-09-13] MEDS: Heparin 5000 units/ml inj SUBQ SCH ×2 (10:17→20:43)
--- NOTE | 2016-09-13 11:42 | Infectious Diseases Prog Note ---
Assessment/Plan Assessment/Plan A; Sepsis Bacteremia E. coli UTI Pneumonia Dementia P; Continue Cefepime & Vancomycin Case was D/W microbiology lab will f/u cultures Subjective ROS Limited/Unobtainable: Yes Allergies: Coded Allergies: SULFA (SULFONAMIDE ANTIBIOTICS) (Verified Allergy, Unknown, 08/21/12) Objective Vital Signs Last 24 Hour Vital Signs Date Time Temp Pulse Resp B/P Pulse Ox O2 Delivery O2 Flow Rate FiO2 09/13/16 08:15 97.7 101 21 121/72 97 Room Air 09/13/16 07:42 Nasal Cannula 3.0 32 09/13/16 07:41 93 Nasal Cannula 3.0 32 09/13/16 07:40 102 22 Nasal Cannula 3.0 32 09/13/16 03:11 97.9 97 20 137/74 94 Nasal Cannula 3.5 09/12/16 23:34 98.1 111 17 97/49 91 Nasal Cannula 09/12/16 21:00 98.4 101 16 121/77 90 Nasal Cannula 09/12/16 20:00 Non-Rebreather 15.0 100 09/12/16 20:00 98.4 101 16 121/77 90 Nasal Cannula 09/12/16 19:59 97 25 Non-Rebreather 15.0 100 09/12/16 19:59 99 Non-Rebreather 15.0 100 09/12/16 16:00 98.8 100 20 130/95 96 Nasal Cannula 3.0 09/12/16 12:00 98.4 20 120/60 97 Nasal Cannula 3.0 Height (Feet): 5 Height (Inches): 1.00 Weight (Pounds): 125 General Appearance: no acute distress HEENT: mucous membranes moist Respiratory/Chest: lungs clear Cardiovascular: tachycardia Abdomen: soft, non tender Extremities: no edema Neurologic/Psychiatric: other - sleeping Microbiology Date/Time Source Procedure Growth Status 09/11/16 15:50 Blood Blood Culture - Preliminary Resulted 09/11/16 15:30 Blood Blood Culture - Final Bacillus Sp Not B. Anthracis Complete 09/11/16 16:00 Urine,Clean Catch Urine Culture - Final Escherichia Coli Complete 09/11/16 17:20 Rectum VRE Culture - Final NO VANCOMYCIN RESISTANT ENTEROCOCCUS ... Complete Laboratory Tests Test 09/13/16 05:15 White Blood Count 14.5 K/UL (4.8-10.8) H Red Blood Count 3.77 M/UL (4.20-5.40) L Hemoglobin 12.1 G/DL (12.0-16.0) Hematocrit 36.4 % (37.0-47.0) L Mean Corpuscular Volume 97 FL (80-99) Mean Corpuscular Hemoglobin 32.0 PG (27.0-31.0) H Mean Corpuscular Hemoglobin Concent 33.1 G/DL (32.0-36.0) Red Cell Distribution Width 12.4 % (11.6-14.8) Platelet Count 201 K/UL (150-450) Mean Platelet Volume 6.7 FL (6.5-10.1) Neutrophils (%) (Auto) 84.4 % (45.0-75.0) H Lymphocytes (%) (Auto) 9.5 % (20.0-45.0) L Monocytes (%) (Auto) 5.6 % (1.0-10.0) Eosinophils (%) (Auto) 0.1 % (0.0-3.0) Basophils (%) (Auto) 0.4 % (0.0-2.0) Sodium Level 149 mEQ/L (135-145) H Potassium Level 3.8 mEQ/L (3.4-4.9) Chloride Level 113 mEQ/L (98-107) H Carbon Dioxide Level 24 mEQ/L (20-30) Anion Gap 12 (5-15) Blood Urea Nitrogen 22 mg/dL (7-23) Creatinine 0.7 mg/dL (0.5-0.9) Estimat Glomerular Filtration Rate mL/min (>60) Glucose Level 115 mg/dL (74-106) H Calcium Level 9.6 mg/dL (8.6-10.2) Phosphorus Level 1.5 mg/dL (2.5-4.8) L Magnesium Level 1.9 mg/dL (1.7-2.5) Total Bilirubin 0.4 mg/dL (0.0-1.2) Aspartate Amino Transf (AST/SGOT) 33 U/L (5-40) Alanine Aminotransferase (ALT/SGPT) 17 U/L (3-33) Alkaline Phosphatase 73 U/L (35-104) Total Protein 6.5 g/dL (6.6-8.7) L Albumin 3.4 g/dL (3.5-5.2) L Globulin 3.1 g/dL Albumin/Globulin Ratio 1.0 (1.0-2.7) Current Medications Medications (Trade) Dose Ordered Sig/Medardo Route PRN Reason Start Time Stop Time Status Last Admin Dose Admin Acetaminophen (Tylenol) 650 mg Q4H PRN ORAL fever 09/11/16 18:45 10/11/16 18:44 Albuterol/ Ipratropium 3 ml 3 ml Q4H PRN HHN Shortness of Breath 09/11/16 18:45 09/16/16 18:44 Cefepime HCl 2 gm/ Dextrose 110 ml @ 220 mls/hr QHS IV 09/11/16 22:00 09/18/16 21:59 09/12/16 20:06 Clotrimazole (Lotrimin) 1 applic BEDTIME TOPIC 09/12/16 21:00 10/12/16 20:59 09/12/16 20:07 Famotidine (Pepcid I.v.) 20 mg QHS IVP 09/12/16 21:00 10/12/16 20:59 09/12/16 20:06 Heparin Sodium (Porcine) (Heparin 5000 units/ml) 5,000 units EVERY 12 HOURS SUBQ 09/11/16 21:00 10/11/16 20:59 09/13/16 10:17 Hydrocortisone (Hydrocortisone) 1 applic BEDTIME TOPIC 09/12/16 21:00 10/12/16 20:59 09/12/16 20:07 Morphine Sulfate (Morphine Sulfate) 2 mg Q4H PRN IVP Moderate Pain (Pain Scale 4-6) 09/11/16 18:45 09/18/16 18:44 Nitroglycerin 0.4 mg 0.4 mg Q5MIN PRN SL Prn Chest Pain 09/11/16 18:45 10/11/16 18:44 Ondansetron HCl (Zofran) 4 mg Q6H PRN IVP Nausea & Vomiting 09/11/16 18:45 10/11/16 18:44 Polyethylene Glycol (Miralax) 17 gm DAILYPRN PRN ORAL Constipation 09/11/16 18:45 10/11/16 18:44 Potassium Chloride/Dextrose/ Sodium Chloride (KCl/D5ns) 1,010 ml @ 50 mls/hr [id number] IV 09/11/16 22:00 10/11/16 21:59 09/12/16 17:18 Quetiapine Fumarate (SEROquel) 50 mg DAILY ORAL 09/12/16 09:00 10/12/16 08:59 Sertraline HCl (Zoloft) 25 mg DAILY ORAL 09/12/16 09:00 10/12/16 08:59 Temazepam (Restoril) 15 mg HSPRN PRN ORAL Insomnia 09/11/16 18:45 09/18/16 18:44 Vancomycin HCl/ Dextrose (Vancomycin/D5W) 275 ml @ 183.3 mls/ hr Q24H IVPB 09/12/16 16:30 09/17/16 16:29 09/12/16 16:59 VALORIE CLEVELAND Sep 13, 2016 11:42
[2016-09-13 11:54] VITALS: BP 120/74
--- NOTE | 2016-09-13 12:31 | GI Progress Note ---
Assessment/Plan Problems: (1) Emesis ICD Codes: R11.10 - Vomiting, unspecified SNOMED: 803428772 (2) Sepsis ICD Codes: A41.9 - Sepsis, unspecified organism SNOMED: 38301427 (3) At high risk for aspiration ICD Codes: Z91.89 - Other specified personal risk factors, not elsewhere classified SNOMED: 144349716 Status: unchanged Status Narrative Discussed with Dr. Coley. Assessment/Plan symptomatic treatment zofran prn >> medication reaction to reglan and erythromycin ST evaluation fu H2B abx electrolyte correction fu labs The patient was seen and examined at bedside and all new and available data was reviewed in the patients chart. I agree with the above findings, impression and plan. (Patient seen earlier today. Signature stamp does not reflect patient encounter time.). -Kenneth Coley MD Subjective Subjective limited Objective Last 24 Hour Vital Signs Date Time Temp Pulse Resp B/P Pulse Ox O2 Delivery O2 Flow Rate FiO2 09/13/16 11:54 98.7 98 21 120/74 97 Nasal Cannula 2.0 09/13/16 08:15 97.7 101 21 121/72 97 Room Air 09/13/16 07:42 Nasal Cannula 3.0 32 09/13/16 07:41 93 Nasal Cannula 3.0 32 09/13/16 07:40 102 22 Nasal Cannula 3.0 32 09/13/16 03:11 97.9 97 20 137/74 94 Nasal Cannula 3.5 09/12/16 23:34 98.1 111 17 97/49 91 Nasal Cannula 09/12/16 21:00 98.4 101 16 121/77 90 Nasal Cannula 09/12/16 20:00 Non-Rebreather 15.0 100 09/12/16 20:00 98.4 101 16 121/77 90 Nasal Cannula 09/12/16 19:59 97 25 Non-Rebreather 15.0 100 09/12/16 19:59 99 Non-Rebreather 15.0 100 09/12/16 16:00 98.8 100 20 130/95 96 Nasal Cannula 3.0 Intake and Output 09/12/16 09/13/16 19:00 07:00 Intake Total 325.0 ml 560 ml Output Total 300 ml 325 ml Balance 25.0 ml 235 ml Intake IV Total 325.0 ml 560 ml Output Urine Total 300 ml 325 ml # Bowel Movements 1 Laboratory Tests Test 09/13/16 05:15 White Blood Count 14.5 K/UL (4.8-10.8) H Red Blood Count 3.77 M/UL (4.20-5.40) L Hemoglobin 12.1 G/DL (12.0-16.0) Hematocrit 36.4 % (37.0-47.0) L Mean Corpuscular Volume 97 FL (80-99) Mean Corpuscular Hemoglobin 32.0 PG (27.0-31.0) H Mean Corpuscular Hemoglobin Concent 33.1 G/DL (32.0-36.0) Red Cell Distribution Width 12.4 % (11.6-14.8) Platelet Count 201 K/UL (150-450) Mean Platelet Volume 6.7 FL (6.5-10.1) Neutrophils (%) (Auto) 84.4 % (45.0-75.0) H Lymphocytes (%) (Auto) 9.5 % (20.0-45.0) L Monocytes (%) (Auto) 5.6 % (1.0-10.0) Eosinophils (%) (Auto) 0.1 % (0.0-3.0) Basophils (%) (Auto) 0.4 % (0.0-2.0) Sodium Level 149 mEQ/L (135-145) H Potassium Level 3.8 mEQ/L (3.4-4.9) Chloride Level 113 mEQ/L (98-107) H Carbon Dioxide Level 24 mEQ/L (20-30) Anion Gap 12 (5-15) Blood Urea Nitrogen 22 mg/dL (7-23) Creatinine 0.7 mg/dL (0.5-0.9) Estimat Glomerular Filtration Rate mL/min (>60) Glucose Level 115 mg/dL (74-106) H Calcium Level 9.6 mg/dL (8.6-10.2) Phosphorus Level 1.5 mg/dL (2.5-4.8) L Magnesium Level 1.9 mg/dL (1.7-2.5) Total Bilirubin 0.4 mg/dL (0.0-1.2) Aspartate Amino Transf (AST/SGOT) 33 U/L (5-40) Alanine Aminotransferase (ALT/SGPT) 17 U/L (3-33) Alkaline Phosphatase 73 U/L (35-104) Total Protein 6.5 g/dL (6.6-8.7) L Albumin 3.4 g/dL (3.5-5.2) L Globulin 3.1 g/dL Albumin/Globulin Ratio 1.0 (1.0-2.7) Height (Feet): 5 Height (Inches): 1.00 Weight (Pounds): 125 General Appearance: no apparent distress Cardiovascular: normal rate Respiratory/Chest: other - 2LNC Abdominal Exam: normal bowel sounds, non tender, soft Valentina Brannon N.PSantos Sep 13, 2016 12:31 KENNETH COLEY Sep 15, 2016 10:03
[2016-09-13] MEDS ORDERED: D5W w/KCl 20mEq 1,000 ML IV SCH (14:00)
[2016-09-13] MEDS ORDERED: Potassium Phosphate 30 MM in Sodium Chloride 550 ML IV ONE (14:00)
[2016-09-13] MEDS ORDERED: SODIUM PHOSPHATE IVPB ONE (15:00)
[2016-09-13] MEDS ORDERED: D5W IVPB ONE (15:00)
--- NOTE | 2016-09-13 15:29 | Pulmonology Progress Note ---
Assessment/Plan Problems: (1) Aspiration pneumonia (2) Acute encephalopathy (3) Sepsis (4) Pyelonephritis (5) Alzheimer's dementia (6) DNR (do not resuscitate) Assessment/Plan wbc still high iv abx afebrile check electrolyes respiratory treatment, when mental status better swallow study titrate fio2 to sat of 92% check cultures, dvt prophylaxis talked to pt's son, he wouldn't want any artificial feeding in case she fails swallow study Subjective ROS Limited/Unobtainable: Yes Constitutional: Reports: no symptoms HEENT: Repors: no symptoms Respiratory: Reports: no symptoms Allergies: Coded Allergies: SULFA (SULFONAMIDE ANTIBIOTICS) (Verified Allergy, Unknown, 08/21/12) Objective Last 24 Hour Vital Signs Date Time Temp Pulse Resp B/P Pulse Ox O2 Delivery O2 Flow Rate FiO2 09/13/16 11:54 98.7 98 21 120/74 97 Nasal Cannula 2.0 09/13/16 08:15 97.7 101 21 121/72 97 Room Air 09/13/16 07:42 Nasal Cannula 3.0 32 09/13/16 07:41 93 Nasal Cannula 3.0 32 09/13/16 07:40 102 22 Nasal Cannula 3.0 32 09/13/16 03:11 97.9 97 20 137/74 94 Nasal Cannula 3.5 09/12/16 23:34 98.1 111 17 97/49 91 Nasal Cannula 09/12/16 21:00 98.4 101 16 121/77 90 Nasal Cannula 09/12/16 20:00 Non-Rebreather 15.0 100 09/12/16 20:00 98.4 101 16 121/77 90 Nasal Cannula 09/12/16 19:59 97 25 Non-Rebreather 15.0 100 09/12/16 19:59 99 Non-Rebreather 15.0 100 09/12/16 16:00 98.8 100 20 130/95 96 Nasal Cannula 3.0 Intake and Output 09/12/16 09/13/16 19:00 07:00 Intake Total 325.0 ml 560 ml Output Total 300 ml 325 ml Balance 25.0 ml 235 ml Intake IV Total 325.0 ml 560 ml Output Urine Total 300 ml 325 ml # Bowel Movements 1 General Appearance: WD/WN HEENT: normocephalic, atraumatic Respiratory/Chest: chest wall non-tender, lungs clear Breasts: no masses Cardiovascular: normal peripheral pulses, normal rate Abdomen: normal bowel sounds, soft, non tender Genitourinary: normal external genitalia Extremities: no cyanosis Skin: no rash 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 Anthracis Complete 09/11/16 16:00 Urine,Clean Catch Urine Culture - Final Escherichia Coli Complete 09/11/16 17:20 Rectum VRE Culture - Final NO VANCOMYCIN RESISTANT ENTEROCOCCUS ... Complete Laboratory Tests 09/13/16 05:15: White Blood Count 14.5H, Red Blood Count 3.77L, Hemoglobin 12.1, Hematocrit 36.4L, Mean Corpuscular Volume 97, Mean Corpuscular Hemoglobin 32.0H, Mean Corpuscular Hemoglobin Concent 33.1, Red Cell Distribution Width 12.4, Platelet Count 201, Mean Platelet Volume 6.7, Neutrophils (%) (Auto) 84.4H, Lymphocytes ( %) (Auto) 9.5L, Monocytes (%) (Auto) 5.6, Eosinophils (%) (Auto) 0.1, Basophils (%) (Auto) 0.4, Sodium Level 149H, Potassium Level 3.8, Chloride Level 113H, Carbon Dioxide Level 24, Anion Gap 12, Blood Urea Nitrogen 22, Creatinine 0.7, Estimat Glomerular Filtration Rate , Glucose Level 115H, Calcium Level 9.6, Phosphorus Level 1.5L, Magnesium Level 1.9, Total Bilirubin 0.4, Aspartate Amino Transf (AST/SGOT) 33, Alanine Aminotransferase (ALT/SGPT) 17, Alkaline Phosphatase 73, Total Protein 6.5L, Albumin 3.4L, Globulin 3.1, Albumin/ Globulin Ratio 1.0 Current Medications Medications (Trade) Dose Ordered Sig/Medardo Route PRN Reason Start Time Stop Time Status Last Admin Dose Admin Acetaminophen (Tylenol) 650 mg Q4H PRN ORAL fever 09/11/16 18:45 10/11/16 18:44 Albuterol/ Ipratropium 3 ml 3 ml Q4H PRN HHN Shortness of Breath 09/11/16 18:45 09/16/16 18:44 Cefepime HCl 2 gm/ Dextrose 110 ml @ 220 mls/hr QHS IV 09/11/16 22:00 09/18/16 21:59 09/12/16 20:06 Clotrimazole (Lotrimin) 1 applic BEDTIME TOPIC 09/12/16 21:00 10/12/16 20:59 09/12/16 20:07 Dextrose/ Electrolytes 1,000 ml @ 50 mls/hr Q20H IV 09/13/16 14:00 10/13/16 13:59 09/13/16 14:23 Famotidine 20 mg 20 mg QHS IVP 09/12/16 21:00 10/12/16 20:59 09/12/16 20:06 Heparin Sodium (Porcine) (Heparin 5000 units/ml) 5,000 units EVERY 12 HOURS SUBQ 09/11/16 21:00 10/11/16 20:59 09/13/16 10:17 Hydrocortisone (Hydrocortisone) 1 applic BEDTIME TOPIC 09/12/16 21:00 10/12/16 20:59 09/12/16 20:07 Morphine Sulfate (Morphine Sulfate) 2 mg Q4H PRN IVP Moderate Pain (Pain Scale 4-6) 09/11/16 18:45 09/18/16 18:44 Nitroglycerin (Ntg) 0.4 mg Q5MIN PRN SL Prn Chest Pain 09/11/16 18:45 10/11/16 18:44 Ondansetron HCl (Zofran) 4 mg Q6H PRN IVP Nausea & Vomiting 09/11/16 18:45 10/11/16 18:44 Polyethylene Glycol (Miralax) 17 gm DAILYPRN PRN ORAL Constipation 09/11/16 18:45 10/11/16 18:44 Quetiapine Fumarate (SEROquel) 50 mg DAILY ORAL 09/12/16 09:00 10/12/16 08:59 Sertraline HCl (Zoloft) 25 mg DAILY ORAL 09/12/16 09:00 10/12/16 08:59 Sodium Phosphate/ Dextrose (NaPO4/D5W 500ml) 560 ml @ 93.333 mls/ hr ONCE ONCE IVPB 09/13/16 15:00 09/13/16 20:59 Temazepam (Restoril) 15 mg HSPRN PRN ORAL Insomnia 09/11/16 18:45 09/18/16 18:44 Vancomycin HCl/ Dextrose (Vancomycin/D5W) 275 ml @ 183.3 mls/ hr Q24H IVPB 09/12/16 16:30 09/17/16 16:29 09/12/16 16:59 YESY MARSH Sep 13, 2016 15:29
[2016-09-13 16:00] VITALS: BP 122/69
[2016-09-13 20:00] VITALS: BP 142/108
[2016-09-13] MEDS: Famotidine 20 MG/ 2ML VIAL IVP SCH (20:41)
[2016-09-13] MEDS: Hydrocortisone 2.5% Oint 30gm TOPIC SCH (20:44)
[2016-09-14] VITALS (7 sets, daily range): BP systolic 103–145; BP diastolic 66–83
[2016-09-14] MEDS: Heparin 5000 units/ml inj SUBQ SCH ×2 (09:32→20:46)
--- NOTE | 2016-09-14 12:11 | GI Progress Note ---
Assessment/Plan Problems: (1) Emesis ICD Codes: R11.10 - Vomiting, unspecified SNOMED: 090626613 (2) Sepsis ICD Codes: A41.9 - Sepsis, unspecified organism SNOMED: 02414190 (3) At high risk for aspiration ICD Codes: Z91.89 - Other specified personal risk factors, not elsewhere classified SNOMED: 795042314 Status: unchanged Status Narrative Discussed with Dr. Coley. Assessment/Plan comfort care symptomatic treatment zofran prn no labs Subjective Subjective limited Objective Last 24 Hour Vital Signs Date Time Temp Pulse Resp B/P Pulse Ox O2 Delivery O2 Flow Rate FiO2 09/14/16 12:00 97.9 75 18 140/68 Nasal Cannula 97.0 09/14/16 08:00 97.0 92 20 103/72 98 Nasal Cannula 3.0 09/14/16 07:32 98 Nasal Cannula 2.0 09/14/16 07:32 Nasal Cannula 2.0 09/14/16 07:31 96 20 Nasal Cannula 2.0 09/14/16 04:00 97.7 98 16 141/83 91 Nasal Cannula 09/14/16 00:00 98.2 85 20 125/74 95 Nasal Cannula 2.0 09/13/16 20:09 98 Nasal Cannula 2.0 09/13/16 20:09 Nasal Cannula 2.0 09/13/16 20:08 94 20 Nasal Cannula 2.0 09/13/16 20:00 98.4 98 20 142/108 92 Nasal Cannula 2.0 09/13/16 16:00 98.6 94 20 122/69 98 Nasal Cannula 2.0 Intake and Output 09/13/16 09/14/16 19:00 07:00 Output Total 1000 ml 450 ml Balance -1000 ml -450 ml Output Urine Total 1000 ml 450 ml Height (Feet): 5 Height (Inches): 1.00 Weight (Pounds): 125 General Appearance: no apparent distress Cardiovascular: normal rate Respiratory/Chest: normal breath sounds, no respiratory distress Abdominal Exam: soft Valentina Brannon NJose Sep 14, 2016 12:11
--- NOTE | 2016-09-14 14:02 | Infectious Diseases Prog Note ---
Assessment/Plan Assessment/Plan ASSESSMENT: 80 y/o female with: // Probable aspiration PNA // CONS bacteremia 2/2 (single stick), m/l contaminant // Bacillus bacteremia 1/4, m/l contaminant // E.coli UTI // Leukocytosis - overall improved, afebrile // Advanced dementia // Sulfa allergy // DNR, hospice PLAN: - ABX have been discontinue. palliative care Subjective Allergies: Coded Allergies: SULFA (SULFONAMIDE ANTIBIOTICS) (Verified Allergy, Unknown, 08/21/12) Subjective remains afebrile noted plan hospice. ABX have been discontinued Objective Vital Signs Last 24 Hour Vital Signs Date Time Temp Pulse Resp B/P Pulse Ox O2 Delivery O2 Flow Rate FiO2 09/14/16 12:00 97.9 75 18 140/68 Nasal Cannula 97.0 09/14/16 08:00 97.0 92 20 103/72 98 Nasal Cannula 3.0 09/14/16 07:32 98 Nasal Cannula 2.0 28 09/14/16 07:32 Nasal Cannula 2.0 28 09/14/16 07:31 96 20 Nasal Cannula 2.0 28 09/14/16 04:00 97.7 98 16 141/83 91 Nasal Cannula 09/14/16 00:00 98.2 85 20 125/74 95 Nasal Cannula 2.0 09/13/16 20:09 98 Nasal Cannula 2.0 28 09/13/16 20:09 Nasal Cannula 2.0 28 09/13/16 20:08 94 20 Nasal Cannula 2.0 28 09/13/16 20:00 98.4 98 20 142/108 92 Nasal Cannula 2.0 09/13/16 16:00 98.6 94 20 122/69 98 Nasal Cannula 2.0 Height (Feet): 5 Height (Inches): 1.00 Weight (Pounds): 125 General Appearance: no acute distress Respiratory/Chest: no respiratory distress Cardiovascular: normal rate, regular rhythm Abdomen: normal bowel sounds, soft, non tender, non distended Microbiology Date/Time Source Procedure Growth Status 09/11/16 15:50 Blood Blood Culture - Preliminary Staphylococcus Sp Coag Neg Resulted 09/11/16 15:30 Blood Blood Culture - Final Bacillus Sp Not B. Anthracis Complete 09/11/16 16:00 Urine,Clean Catch Urine Culture - Final Escherichia Coli Complete 09/11/16 17:20 Rectum VRE Culture - Final NO VANCOMYCIN RESISTANT ENTEROCOCCUS ... Complete Current Medications Medications (Trade) Dose Ordered Sig/Medardo Route PRN Reason Start Time Stop Time Status Last Admin Dose Admin Acetaminophen (Tylenol) 650 mg Q4H PRN ORAL fever 09/11/16 18:45 10/11/16 18:44 Albuterol/ Ipratropium (DuoNeb 0.5-3(2.5)mg/3ml) 3 ml Q4H PRN HHN Shortness of Breath 09/11/16 18:45 09/16/16 18:44 Clotrimazole (Lotrimin) 1 applic BEDTIME TOPIC 09/12/16 21:00 10/12/16 20:59 09/13/16 20:43 Famotidine (Pepcid I.v.) 20 mg QHS IVP 09/12/16 21:00 10/12/16 20:59 09/13/16 20:41 Heparin Sodium (Porcine) (Heparin 5000 units/ml) 5,000 units EVERY 12 HOURS SUBQ 09/11/16 21:00 10/11/16 20:59 09/14/16 09:32 Hydrocortisone (Hydrocortisone) 1 applic BEDTIME TOPIC 09/12/16 21:00 10/12/16 20:59 09/13/16 20:44 Morphine Sulfate (Morphine Sulfate) 2 mg Q4H PRN IVP Moderate Pain (Pain Scale 4-6) 09/11/16 18:45 09/18/16 18:44 Nitroglycerin (Ntg) 0.4 mg Q5MIN PRN SL Prn Chest Pain 09/11/16 18:45 10/11/16 18:44 Ondansetron HCl (Zofran) 4 mg Q6H PRN IVP Nausea & Vomiting 09/11/16 18:45 10/11/16 18:44 Polyethylene Glycol (Miralax) 17 gm DAILYPRN PRN ORAL Constipation 09/11/16 18:45 10/11/16 18:44 Quetiapine Fumarate (SEROquel) 50 mg DAILY ORAL 09/12/16 09:00 10/12/16 08:59 PABLITO TIERNEY Sep 14, 2016 14:02
[2016-09-14] MEDS ORDERED: NS 275ml ONE (17:30)
[2016-09-14] MEDS ORDERED: Tubing IV Secondary IV ONE (17:30)
[2016-09-14] MEDS ORDERED: MORPHINE S20 MG/5 ML PO (18:23)
--- NOTE | 2016-09-14 18:31 | Pulmonology Progress Note ---
Assessment/Plan Problems: (1) Aspiration pneumonia (2) Acute encephalopathy (3) Sepsis (4) Pyelonephritis (5) Alzheimer's dementia (6) DNR (do not resuscitate) Assessment/Plan respiratory treatment, swallow study noted, pt didn't pass titrate fio2 to sat of 92% dvt prophylaxis talked to pt's son, he wouldn't want any artificial feeding in case she fails swallow study pt will be going back to assisted living with hospice. Subjective ROS Limited/Unobtainable: Yes Interval Events: open eyes, comfortabel Allergies: Coded Allergies: SULFA (SULFONAMIDE ANTIBIOTICS) (Verified Allergy, Unknown, 08/21/12) Objective Last 24 Hour Vital Signs Date Time Temp Pulse Resp B/P Pulse Ox O2 Delivery O2 Flow Rate FiO2 09/14/16 16:03 97.9 73 21 123/66 96 Nasal Cannula 2.0 09/14/16 12:00 97.9 75 18 140/68 Nasal Cannula 97.0 09/14/16 08:00 97.0 92 20 103/72 98 Nasal Cannula 3.0 09/14/16 07:32 98 Nasal Cannula 2.0 28 09/14/16 07:32 Nasal Cannula 2.0 28 09/14/16 07:31 96 20 Nasal Cannula 2.0 28 09/14/16 04:00 97.7 98 16 141/83 91 Nasal Cannula 09/14/16 00:00 98.2 85 20 125/74 95 Nasal Cannula 2.0 09/13/16 20:09 98 Nasal Cannula 2.0 28 09/13/16 20:09 Nasal Cannula 2.0 09/13/16 20:08 94 20 Nasal Cannula 2.0 09/13/16 20:00 98.4 98 20 142/108 92 Nasal Cannula 2.0 Intake and Output 09/13/16 09/14/16 19:00 07:00 Output Total 1000 ml 450 ml Balance -1000 ml -450 ml Output Urine Total 1000 ml 450 ml General Appearance: WD/WN HEENT: normocephalic Respiratory/Chest: chest wall non-tender, lungs clear Breasts: no masses Cardiovascular: normal peripheral pulses Abdomen: normal bowel sounds, soft, non tender Genitourinary: normal external genitalia Skin: no rash 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 grossly normal Lymphatic: no neck adenopathy Current Medications Medications (Trade) Dose Ordered Sig/Medardo Route PRN Reason Start Time Stop Time Status Last Admin Dose Admin Acetaminophen (Tylenol) 650 mg Q4H PRN ORAL fever 09/11/16 18:45 10/11/16 18:44 Albuterol/ Ipratropium (DuoNeb 0.5-3(2.5)mg/3ml) 3 ml Q4H PRN HHN Shortness of Breath 09/11/16 18:45 09/16/16 18:44 Clotrimazole (Lotrimin) 1 applic BEDTIME TOPIC 09/12/16 21:00 10/12/16 20:59 09/13/16 20:43 Famotidine (Pepcid I.v.) 20 mg QHS IVP 09/12/16 21:00 10/12/16 20:59 09/13/16 20:41 Heparin Sodium (Porcine) (Heparin 5000 units/ml) 5,000 units EVERY 12 HOURS SUBQ 09/11/16 21:00 10/11/16 20:59 09/14/16 09:32 Hydrocortisone (Hydrocortisone) 1 applic BEDTIME TOPIC 09/12/16 21:00 10/12/16 20:59 09/13/16 20:44 Morphine Sulfate (Morphine Sulfate) 2 mg Q4H PRN IVP Moderate Pain (Pain Scale 4-6) 09/11/16 18:45 09/18/16 18:44 Nitroglycerin (Ntg) 0.4 mg Q5MIN PRN SL Prn Chest Pain 09/11/16 18:45 10/11/16 18:44 Ondansetron HCl (Zofran) 4 mg Q6H PRN IVP Nausea & Vomiting 09/11/16 18:45 10/11/16 18:44 Polyethylene Glycol (Miralax) 17 gm DAILYPRN PRN ORAL Constipation 09/11/16 18:45 10/11/16 18:44 Quetiapine Fumarate (SEROquel) 50 mg DAILY ORAL 09/12/16 09:00 10/12/16 08:59 YESY MARSH Sep 14, 2016 18:31
[2016-09-14] MEDS: Famotidine 20 MG/ 2ML VIAL IVP SCH (20:44)
[2016-09-14] MEDS: Hydrocortisone 2.5% Oint 30gm TOPIC SCH (20:44)
[2016-09-15 04:00] VITALS: BP 151/77
[2016-09-15 08:15] VITALS: BP 134/77
[2016-09-15] MEDS: Heparin 5000 units/ml inj SUBQ SCH (09:00)
[2016-09-15 09:29] VITALS: BP 134/77
--- NOTE | 2016-09-15 11:17 | GI Progress Note ---
Assessment/Plan Problems: (1) Emesis ICD Codes: R11.10 - Vomiting, unspecified SNOMED: 049911545 (2) Sepsis ICD Codes: A41.9 - Sepsis, unspecified organism SNOMED: 35498257 (3) At high risk for aspiration ICD Codes: Z91.89 - Other specified personal risk factors, not elsewhere classified SNOMED: 026369258 Status: unchanged Status Narrative Discussed with Dr. Coley. Assessment/Plan comfort care symptomatic treatment zofran prn no labs Subjective Subjective limited Objective Last 24 Hour Vital Signs Date Time Temp Pulse Resp B/P Pulse Ox O2 Delivery O2 Flow Rate FiO2 09/15/16 08:15 97.7 68 14 134/77 94 Room Air 09/15/16 06:36 92 Room Air 09/15/16 06:36 Room Air 09/15/16 06:36 61 15 Room Air 09/15/16 04:00 97.9 71 19 151/77 93 Nasal Cannula 09/14/16 23:46 97.8 81 19 145/81 Nasal Cannula 09/14/16 20:00 97.9 70 20 141/72 93 Room Air 09/14/16 19:05 Nasal Cannula 2.0 09/14/16 19:05 97 Nasal Cannula 2.0 09/14/16 19:00 92 20 Nasal Cannula 2.0 09/14/16 16:03 97.9 73 21 123/66 96 Nasal Cannula 2.0 09/14/16 12:00 97.9 75 18 140/68 Nasal Cannula 97.0 Intake and Output 09/14/16 09/15/16 19:00 07:00 Intake Total 0 ml Output Total 850 ml 600 ml Balance -850 ml -600 ml Intake Oral 0 ml Output Urine Total 850 ml 600 ml Height (Feet): 5 Height (Inches): 1.00 Weight (Pounds): 125 General Appearance: no apparent distress, alert Cardiovascular: normal rate Respiratory/Chest: no respiratory distress Abdominal Exam: soft Valentina Brannon N.P. Sep 15, 2016 11:17
[2016-09-15 12:15] VITALS: BP 141/78
[2016-09-15 16:00] VITALS: BP 128/80
--- NOTE | 2016-09-15 19:41 | Pulmonology Progress Note ---
Assessment/Plan Problems: (1) Aspiration pneumonia (2) Acute encephalopathy (3) Sepsis (4) Pyelonephritis (5) Alzheimer's dementia (6) DNR (do not resuscitate) Assessment/Plan respiratory treatment, swallow study noted, pt didn't pass titrate fio2 to sat of 92% talked to pt's son, he wouldn't want any artificial feeding in case she fails swallow study pt will be going back to assisted living with hospice care and no hospitalization. as family wish Subjective ROS Limited/Unobtainable: No Constitutional: Reports: no symptoms Respiratory: Reports: no symptoms Allergies: Coded Allergies: SULFA (SULFONAMIDE ANTIBIOTICS) (Verified Allergy, Unknown, 08/21/12) Objective Last 24 Hour Vital Signs Date Time Temp Pulse Resp B/P Pulse Ox O2 Delivery O2 Flow Rate FiO2 09/15/16 16:00 98.6 82 12 128/80 94 Room Air 09/15/16 12:15 98.2 71 18 141/78 96 Room Air 09/15/16 08:15 97.7 68 14 134/77 94 Room Air 09/15/16 06:36 92 Room Air 09/15/16 06:36 Room Air 09/15/16 06:36 61 15 Room Air 09/15/16 04:00 97.9 71 19 151/77 93 Nasal Cannula 09/14/16 23:46 97.8 81 19 145/81 Nasal Cannula 09/14/16 20:00 97.9 70 20 141/72 93 Room Air Intake and Output 09/14/16 09/15/16 19:00 07:00 Intake Total 0 ml Output Total 850 ml 600 ml Balance -850 ml -600 ml Intake Oral 0 ml Output Urine Total 850 ml 600 ml Objective General Appearance: WD/WN HEENT: normocephalic Respiratory/Chest: chest wall non-tender, lungs clear Breasts: no masses Cardiovascular: normal peripheral pulses Abdomen: normal bowel sounds, soft, non tender Genitourinary: normal external genitalia Skin: no rash Current Medications Medications (Trade) Dose Ordered Sig/Medardo Route PRN Reason Start Time Stop Time Status Last Admin Dose Admin Acetaminophen (Tylenol) 650 mg Q4H PRN ORAL fever 09/11/16 18:45 10/11/16 18:44 Albuterol/ Ipratropium (DuoNeb 0.5-3(2.5)mg/3ml) 3 ml Q4H PRN HHN Shortness of Breath 09/11/16 18:45 09/16/16 18:44 Clotrimazole (Lotrimin) 1 applic BEDTIME TOPIC 09/12/16 21:00 10/12/16 20:59 09/14/16 20:44 Famotidine (Pepcid I.v.) 20 mg QHS IVP 09/12/16 21:00 10/12/16 20:59 09/14/16 20:44 Heparin Sodium (Porcine) (Heparin 5000 units/ml) 5,000 units EVERY 12 HOURS SUBQ 09/11/16 21:00 10/11/16 20:59 09/14/16 20:46 Hydrocortisone (Hydrocortisone) 1 applic BEDTIME TOPIC 09/12/16 21:00 10/12/16 20:59 09/14/16 20:44 Morphine Sulfate (Morphine Sulfate) 2 mg Q4H PRN IVP Moderate Pain (Pain Scale 4-6) 09/11/16 18:45 09/18/16 18:44 Nitroglycerin (Ntg) 0.4 mg Q5MIN PRN SL Prn Chest Pain 09/11/16 18:45 10/11/16 18:44 Ondansetron HCl (Zofran) 4 mg Q6H PRN IVP Nausea & Vomiting 09/11/16 18:45 10/11/16 18:44 Polyethylene Glycol (Miralax) 17 gm DAILYPRN PRN ORAL Constipation 09/11/16 18:45 10/11/16 18:44 Quetiapine Fumarate (SEROquel) 50 mg DAILY ORAL 09/12/16 09:00 10/12/16 08:59 YESY MARSH Sep 15, 2016 19:41
[2016-09-15] MEDS ORDERED: NS 275ml ONE (20:29)
[2016-09-15 20:30] VITALS: BP 134/73
--- NOTE | 2016-09-18 13:03 | Discharge Summary ---
Discharge Summary Hospital Course Date of Admission Sep 11, 2016 at 17:25 Date of Discharge Sep 15, 2016 at 20:30 Admitting Diagnosis ALTERED MENTAL STATUS HPI Galina Heath is a 80 year old female who was admitted on Sep 11, 2016 at 17:25 for Altered Mental Status Hospital Course dc summary #[id number] Discharge Medications New Medications: Morphine Sulfate (Morphine Sulfate) 20 Mg/5 Ml Solution 5 MG PO EVERY HOUR PRN for 10 Days, ML Continued Medications: Lorazepam* (Ativan*) 0.5 Mg Tablet 0.5 MG PO PRN BID, TAB Quetiapine Fumarate* (Seroquel*) 25 Mg Tablet 50 MG PO DAILY Discharge Condition Upon Discharge: grave Discharge Disposition Patient was discharged to [facility] with hospice services and no further hospitalization Discharge Diagnoses: Discharge Instructions Discharge Instructions Special Instructions I have been assigned to complete a D/C Summary on this account. I was not involved in the patient management Tawnya Gonzalez NP (Vanchtein) Sep 18, 2016 13:03
--- NOTE | 2016-09-19 01:45 | Discharge Summary 2 SIG ---
DATE OF ADMISSION: 09/11/2016 DATE OF DISCHARGE: 09/15/2016 CONSULTANTS: 1. Jose Lyons M.D., Infectious Disease. 2. Kenneth Coley M.D., Gastroenterology. BRIEF HOSPITAL COURSE: 80-year-old female with advanced Alzheimer dementia, was [facility] from the [facility] facility with worsening mental status and low blood pressure. The patient was DNR status. She was given a bolus of normal saline prior to arrival by EMS, and blood pressure responded well. Upon arrival blood pressure was 98/66, however, she was hypoxemic and required placement on 100% nonrebreathing mask with saturation initially only 82%. Workup in the emergency room also revealed low-grade fever -99.4. The patient had leukocytosis - 22.9. Lactic acid -2.2. Urinalysis was consistent with urinary tract infection with positive leukocyte esterase, many bacteria, positive for pyuria and nitrite. Chest x-ray revealed right middle lobe and right lower lobe opacities consistent with infiltrates. Troponin was negative. Pulse oximetry improved as the patient continued to be on nonrebreathing mask from initial 82% to 98% -100%. The patient was admitted for further management of sepsis, aspiration pneumonia. ID and GI consult were requested. The patient was on supplemental oxygen, to keep saturation above 92%. Pulmonary toilet was provided as needed. DVT prophylaxis provided. Swallow evaluation was done at the bedside. The patient failed swallow evaluation. Per son, family does not want any artificial means of feeding. Speech therapist recommended diet for quality of life if mental status improve with strict aspiration precaution and one-to-one feeding . However, at this point recommended to keep the patient NPO. As mentioned above, son declined any artificial means of nutrition. GI closely followed. GI recommended symptomatic treatment with antiemetic as needed. PPI started. Bowel regimen initiated. The patient was on empiric antibiotics. ID followed. Leukocytosis trending down. Urine culture revealed E. coli. Blood culture Staph coag-negative two out of four, likely contaminant as per ID. Family expressed wishes for the patient to be discharged with hospice services. The patient was discharged to assisted living with [facility] with no further hospitalization as per family wishes. DISCHARGE DIAGNOSES: 1. Sepsis, 2. Aspiration pneumonia. 3. Pyelonephritis with E. coli. 4. Acute toxic metabolic encephalopathy on chronic Alzheimer dementia, (likely due to sepsis and declining functional status). 5. Advanced Alzheimer dementia. 6. Dysphagia. 7. DNR status. DISCHARGE MEDICATIONS: See medication reconciliation list. DISCHARGE INSTRUCTIONS: The patient was discharged to assisted living with hospice services to follow up, and no further hospitalization as per family wishes. Mike Servin M.D. I have been assigned to dictate discharge summary on this account and I was not involved in the patient's management. Tawnya Everettvera N.PSantos DR: JAMES JOB#: [id number] CC: [email or web address]
== END 2016-09-15 20:30 | disposition hospice, home (50) | DRG 871 ==
LOC: EDBD 15:42 → EMR 16:31 → 4E 17:25 → EDBEDREQ 20:04
DX: A41.9 Sepsis, unspecified organism (principal); J69.0 Pneumonitis due to inhalation of food and vomit; G92 Toxic encephalopathy; N12 Tubulo-interstitial nephritis, not specified as acute or chronic; N39.0 Urinary tract infection, site not specified; G30.9 Alzheimer's disease, unspecified; F02.80 Dementia in other diseases classified elsewhere, unspecified severity, without behavioral disturbance, psychotic disturbance, mood disturbance, and anxiety; Z66 Do not resuscitate; B96.20 Unspecified Escherichia coli [E. coli] as the cause of diseases classified elsewhere; Z88.2 Allergy status to sulfonamides
CPT/HCPCS: 36415; 71010; 80053; 81003; 82550; 82553; 83605; 83735; 84100; 84484; 85007; 85025; 87040; 87081; 87086; 87181; 93005; 94664; 94760